=== PATIENT | male | born 1950 | race Caucasian/White ===

== ENCOUNTER 2023-04-22 13:24 | Outpatient (OUT) | payer MEDICARE, SELFPAY ==
[2023-04-22 14:47] LABS: Basophils Percent Auto 0.6 % (0.2-2.0); Eosinophils Absolute Auto 0.1 10^3/uL (0.0-0.7); Eosinophils Percent Auto 1.9 % (0.9-7.0); Hematocrit 43.8 % (42.0-54.0); Immature Granulocytes Abs Auto 0.02 10^3/uL (0.00-0.03); Immature Granulocytes Pct Auto 0.3 % (0.0-0.5); Lymphocytes Absolute Auto 1.2 10^3/uL (1.2-3.8); Lymphocytes Percent Auto 18.9 % (20.5-60.0); Mean Corpuscular HGB Conc 34.2 g/dL (29.9-35.2); Mean Corpuscular Hemoglobin 32.2 pg (25.9-34.0); Mean Platelet Volume 8.9 fL (9.5-13.5); Monocytes Absolute Auto 0.5 10^3/uL (0.3-0.8); Monocytes Percent Auto 7.9 % (1.7-12.0); Neutrophils Absolute Auto 4.4 10^3/uL (1.4-6.5); Neutrophils Percent Auto 70.4 % (43.0-75.0); Platelet Count 232 10^3/uL (150-450); Red Blood Count 4.66 10^6/uL (4.70-6.10); Red Cell Distribution Width 13.3 % (11.0-15.0); White Blood Count 6.2 10^3/uL (4.0-11.0)
[2023-04-22 14:55] LABS: INR 1.07; Prothrombin Time 11.3 sec (9.0-11.6)
[2023-04-22 16:08] LABS: Percent Iron Saturation 26.9 %
[2023-04-22 16:47] LABS: Alanine Aminotransferase 42 U/L (16-63); Albumin Globulin Ratio 1.1; Albumin Level 4.3 g/dL (3.4-5.0); Alkaline Phosphatase 65 U/L (46-116); Aspartate Amino Transferase 27 U/L (15-37); BUN Creatinine Ratio 12.1; Bilirubin Total 0.5 mg/dL (0.2-1.0); Calcium 8.9 mg/dL (8.5-10.1); Chloride 101 mmol/L (98-107); Estimated GFR (African America >60 (>=60); Estimated GFR (Non-African Ame >60 (>=60); Globulin 3.9 g/dL; Glucose 88 mg/dL (74-106); Sodium 138 mmol/L (136-145); Total Protein 8.2 g/dL (6.4-8.2)
[2023-04-23 06:12] LABS: Alpha-1-Antitrypsin, Serum 141 mg/dL (101-187); Ceruloplasmin 14.9 mg/dL (16.0-31.0); Transferrin 288 mg/dL (177-329)
[2023-04-23 07:12] LABS: HBsAg Screen Negative (Negative); HCV Ab Non Reactive (Non Reactive); Hep B Surface Ab Non Reactive (.)
[2023-04-23 13:08] LABS: ANA Direct Negative (Negative)
[2023-04-23 15:09] LABS: Actin (Smooth Muscle) Antibody 8 Units (0-19)
== END 2023-04-22 13:25 | disposition home or self-care (01) ==
LOC: LAB 13:41
PROVIDERS: PCP Family Medicine
DX: R79.89 Other specified abnormal findings of blood chemistry (principal); K76.0 Fatty (change of) liver, not elsewhere classified
CPT/HCPCS: 36415; 80053; 82103; 82390; 83516; 83540; 83550; 84466; 85025; 85610; 86038; 86706; 86803; 87340; 87522

== ENCOUNTER 2023-12-13 12:45 | Outpatient (OUT) | payer MEDICARE, SELFPAY ==
[2023-12-13 13:22] LABS: Alanine Aminotransferase 26 U/L (16-63); Albumin Globulin Ratio 0.9; Albumin Level 3.6 g/dL (3.4-5.0); Alkaline Phosphatase 64 U/L (46-116); Anion Gap 13.1; Aspartate Amino Transferase 22 U/L (15-37); BUN Creatinine Ratio 12.6; Bilirubin Total 0.4 mg/dL (0.2-1.0); Carbon Dioxide 29.1 mmol/L (21.0-32.0); Chloride 102 mmol/L (98-107); Estimated GFR (African America >60 (>=60); Estimated GFR (Non-African Ame >60 (>=60); Globulin 3.9 g/dL; Glucose 93 mg/dL (74-106); Potassium 4.2 mmol/L (3.5-5.1); Sodium 140 mmol/L (136-145); Total Protein 7.5 g/dL (6.4-8.2)
[2023-12-13 13:42] LABS: Basophils Absolute Auto 0.1 10^3/uL (0.0-0.1); Basophils Percent Auto 1.4 % (0.2-2.0); Eosinophils Absolute Auto 0.2 10^3/uL (0.0-0.7); Eosinophils Percent Auto 2.7 % (0.9-7.0); Hematocrit 44.2 % (42.0-54.0); Hemoglobin 14.6 g/dL (14.0-18.0); Immature Granulocytes Abs Auto 0.01 10^3/uL (0.00-0.03); Immature Granulocytes Pct Auto 0.2 % (0.0-0.5); Lymphocytes Absolute Auto 1.5 10^3/uL (1.2-3.8); Mean Corpuscular Volume 96.9 fL (80.0-94.0); Mean Platelet Volume 9.3 fL (9.5-13.5); Monocytes Absolute Auto 0.7 10^3/uL (0.3-0.8); Monocytes Percent Auto 11.5 % (1.7-12.0); Neutrophils Absolute Auto 3.4 10^3/uL (1.4-6.5); Neutrophils Percent Auto 58.2 % (43.0-75.0); Platelet Count 225 10^3/uL (150-450); Red Blood Count 4.56 10^6/uL (4.70-6.10); Red Cell Distribution Width 13.2 % (11.0-15.0); White Blood Count 5.8 10^3/uL (4.0-11.0)
== END 2023-12-13 12:46 | disposition home or self-care (01) ==
LOC: LAB 12:48
PROVIDERS: PCP Family Medicine
DX: R79.89 Other specified abnormal findings of blood chemistry (principal); K76.0 Fatty (change of) liver, not elsewhere classified; Z86.39 Personal history of other endocrine, nutritional and metabolic disease
CPT/HCPCS: 36415; 80053; 82306; 85025

== ENCOUNTER 2024-04-04 12:39 | Outpatient (OUT) | payer MEDICARE, SELFPAY ==
[2024-04-04 13:32] LABS: Basophils Absolute Auto 0.1 10^3/uL (0.0-0.1); Basophils Percent Auto 0.8 % (0.2-2.0); Eosinophils Absolute Auto 0.2 10^3/uL (0.0-0.7); Eosinophils Percent Auto 3.3 % (0.9-7.0); Immature Granulocytes Abs Auto 0.01 10^3/uL (0.00-0.03); Immature Granulocytes Pct Auto 0.2 % (0.0-0.5); Lymphocytes Absolute Auto 1.5 10^3/uL (1.2-3.8); Lymphocytes Percent Auto 23.1 % (20.5-60.0); Mean Corpuscular HGB Conc 34.1 g/dL (29.9-35.2); Mean Corpuscular Hemoglobin 32.6 pg (25.9-34.0); Mean Corpuscular Volume 95.3 fL (80.0-94.0); Mean Platelet Volume 9.2 fL (9.5-13.5); Monocytes Absolute Auto 0.6 10^3/uL (0.3-0.8); Neutrophils Percent Auto 62.6 % (43.0-75.0); Platelet Count 253 10^3/uL (150-450); Red Cell Distribution Width 13.4 % (11.0-15.0); White Blood Count 6.4 10^3/uL (4.0-11.0)
[2024-04-04 13:34] LABS: Alanine Aminotransferase 28 U/L (16-63); Albumin Level 3.5 g/dL (3.4-5.0); Alkaline Phosphatase 63 U/L (46-116); Anion Gap 6.5; Aspartate Amino Transferase 21 U/L (15-37); BUN Creatinine Ratio 12.9; Bilirubin Total 0.5 mg/dL (0.2-1.0); Carbon Dioxide 31.6 mmol/L (21.0-32.0); Chloride 104 mmol/L (98-107); Estimated GFR (African America >60 (>=60); Estimated GFR (Non-African Ame >60 (>=60); Globulin 3.6 g/dL; Glucose 106 mg/dL (74-106); Potassium 4.1 mmol/L (3.5-5.1); Sodium 138 mmol/L (136-145); Total Protein 7.1 g/dL (6.4-8.2)
[2024-04-04 14:07] LABS: Prostate Specific Antigen Scrn 0.71 ng/mL (<=4.00)
== END 2024-04-04 12:40 | disposition home or self-care (01) ==
LOC: LAB 12:41
PROVIDERS: PCP Family Medicine; Visit Provider Family Medicine
DX: R79.89 Other specified abnormal findings of blood chemistry (principal); Z12.5 Encounter for screening for malignant neoplasm of prostate
CPT/HCPCS: 36415; 80053; 85025; G0103

== ENCOUNTER 2024-09-03 09:56 | Outpatient (OUT) | payer MEDICARE, SELFPAY ==
--- NOTE | 2024-09-03 10:06 | XR_ITS ---
The [address] [address] Patient Name: ELVIS CARPENTER MRN: [id number] date: 1950 Sex: M Assigned Patient Location: [facility] Current Patient Location: Accession/Order Number: [id number] Exam Date: 09/03/2024 10:11 Report Date: 09/04/2024 09:12 At the request of: PETE BOLTON Procedure: XR foot LT min 3V PROCEDURE: XR foot LT min 3V HISTORY: Pain Of Left Great Toe COMPARISON: None. FINDINGS: BONES:Minimal narrowing of the first metatarsophalangeal joint. No articular surface irregularity or significant periarticular osteophytes. No fracture, dislocation, bone lesion of the foot. Small calcaneal plantar spur. SOFT TISSUES:No visible soft tissue swelling. EFFUSION:None visible. OTHER: Negative. XR/XR foot LT min 3V IMPRESSION: 1. Minimal degenerative change of the first metatarsophalangeal joint. Electronically authenticated by: REY GUTHRIE Date: 09/04/2024 09:12
== END 2024-09-03 09:57 | disposition home or self-care (01) ==
LOC: RAD 09:59
PROVIDERS: PCP Family Medicine; Visit Provider Family Medicine
DX: M79.675 Pain in left toe(s) (principal); M19.072 Primary osteoarthritis, left ankle and foot
CPT/HCPCS: 73630

== ENCOUNTER 2024-11-09 18:40 | Emergency (ER) | payer MEDICARE, SELFPAY ==
[2024-11-09] VITALS (12 sets, daily range): BP systolic 109–139; BP diastolic 72–82; PULSE 73–86; TEMP 36.7; O2SAT 90–100; BMI 26.9
--- OUTSIDE RECORDS SUMMARY | 2024-11-09 18:46 | XMS_ITS | CCD ---
Author Organization [facility] Care Team Providers Care Pump Operator Name Role Phone Unavailable Primary Care Provider BETTINA Butterfield Primary Care Physician HOANG, DR BETTINA Morgan Attending Unavailable HOANG, DR BETTINA Morgan Admitting Unavailable BOLTON, DR BETTINA Morgan Primary Care Unavailable HOANG, DR BETTINA Morgan Consulting Unavailable HOANG, DR BETTINA Morgan Admitting Unavailable BOLTON, DR BETTINA Morgan Primary Care Unavailable WEST, DR CRAIG Lindsay Consulting Unavailable BOLTON, DR BETTINA Morgan Attending Unavailable HOANG, DR BETTINA Morgan Consulting Unavailable HOANG, DR BETTINA Morgan Admitting Unavailable BOLTON, DR BETTINA Morgan Primary Care Unavailable WEST, DR CRAIG Lindsay Consulting Unavailable BOLTON, DR BETTINA Morgan Attending Unavailable BOLTON, DR BETTINA Morgan Consulting Unavailable BOLTON, DR BETTINA Morgan Primary Care Unavailable JAX PAUL Consulting Unavailable CRISTAL DE LEON Admitting Unavailable CRISTAL DE LEON Attending Unavailable CRISTAL DE LEON Consulting Unavailable Bettina Bolton MD Primary Care Provider BETTINA BOLTON Primary Care Unavailable ANA MARIA WAGNER Admitting Unavailable ANA MARIA WAGNER Attending Unavailable Bettina Bolton Unavailable Janae Warren Attending Unavailable Janae Warren Attending Unavailable Allergies Allergy Classification Reported Allergen(s) Allergy Type Date of Onset Reaction(s) Facility (3 sources) patient allergy list reviewed by nurse or physicia Propensity to adverse reactions 5 Comment:Done RadMit Other (3 sources) Allergies Reconciled Propensity to adverse reactions Unknown RadMit Other (1 source) No Known Medication Allergies; Translations: [No Known Medication Allergies] Propensity to adverse reactions (disorder) [facility] Repository Medications Current Medications Medication Drug Class(es) Dates Sig (Normalized) Sig (Original) Apoaequorin (PREVAGEN EXTRA STRENGTH PO) (2 sources) Apoaequorin (PRE VAGEN EXTRA STRENGTH PO) Take by mouth 0 Active atorvastatin 10 mg oral tablet (2 sources) HMG-CoA Reductase Inhibitor take 1 tablet by mouth once daily atorvastatin (LIPITOR) 10 MG tablet Take 1 tablet by mouth daily 0 Active benzonatate 200 mg oral capsule (1 source) Non-narcotic Antitussive Start: 4 take 200 mg by mouth three times daily Benzonatate Active 200 MG PO Three times daily 30 July 18, 2024 12:00am calcium chloride 0.0014 meq/ml / potassium chloride 0.004 meq/ml / sodium chloride 0.103 meq/ml / sodium lactate 0.028 meq/ml injectable solution (1 source) Start: 3 lactated ringers IV soln infusion methylPREDNISolone 4 mg oral tablet (1 source) Corticosteroid Start: 4 take 1 tablet by mouth once Methylprednisolone (Medrol (Law)) 4 mg tablets,dose pack Active 0 PO per package directions July 18, 2024 12:00am PO PER PKG DIR Multiple Vitamins-Minerals (THERAPEUTIC MULTIVITAMIN-MINERALS) tablet (2 sources) take 1 tablet by mouth once daily Multiple Vitamins-Minerals (THERAPEUTIC MULTIVITAMIN-MINERALS ) tablet Take 1 tablet by mouth daily 0 Active Multivitamin preparation (6 sources) Start: 3 multivitamin Refill(s) 0 Start Date: 02/24/23 Status: Ordered NONFORMULARY (2 sources) phenylephrine hydrochloride 25 mg/ml ophthalmic solution (2 sources) alpha-1 Adrenergic Agonist Start: 3 phenylephrine (MYDFRIN) 2.5 % ophthalmic solution 1 drop Start: 07-06-2021 phenylephrine (MYDFRIN) 2.5 % ophthalmic solution 1 drop proparacaine hydrochloride 5 mg/ml ophthalmic solution (2 sources) Local Anesthetic Start: 01-24-2023 proparacaine (ALCAINE) 0.5 % ophthalmic solution 1 drop Start: 07-06-2021 proparacaine ( ALCAINE) 0.5 % ophthalmic solution 1 drop 1000 ml sodium chloride 9 mg /ml injection (8 sources) Start: 01-24-2023 0.9 % sodium c hloride infusion Start: 01-24-2023 sodium chlorid e flush 0.9 % injection 5-40 mL Start: 07-06-2021 0.9 % sodium c hloride infusion Start: 07-06-2021 sodium chlorid e flush 0.9 % injection 5-40 mL tetracaine hydrochloride 5 mg/ml ophthalmic solution (2 sources) Sabina Local Anesthetic Start: 01-24-2023 tetracaine (TETRAVISC) 0.5 % ophthalmic solution 1 drop Start: 07-06-2021 tetracaine (TE TRAVISC) 0.5 % ophthalmic solution 1 drop tropicamide 10 mg/ml ophthalmic solution (2 sources) Anticholinergic Start: 01-24-2023 tropicamide (M YDRIACYL) 1 % ophthalmic solution 1 drop Start: 07-06-2021 tropicamide (M YDRIACYL) 1 % ophthalmic solution 1 drop ubidecarenone 100 mg oral ca psule (1 source) Coenzyme Q10 (CO Q-10) 100 MG CAPS Take 100 mg by mouth 0 Active ubidecarenone 100 mg / vitam in e 5 unt oral capsule (1 source) Coenzyme Q10 (CO Q-10) 100 MG CAPS Take 100 mg by mouth 0 Active Completed/Discontinued Medications Medication Drug Class(es) Dates Sig (Normalized) Sig (Original) citalopram 10 mg oral tablet (9 sources) Serotonin Reuptake Inhibitor Start: 01-04-2024 End: 01-05-2024 take 10 mg by mouth once daily Citalopram Discontinued 10 MG PO Daily January 04, 2024 12:00am January 05, 2024 1:44pm Start: 06-04-2021 take 1 tablet by [facility] once daily Citalopram Hydrobromide 10MG Citalopram Hydrobromide 10MG, 1 (one) Tablet Tablet Tablet daily # 30, 06/04/2021, Ref. x3. Active Oral daily for 0 *Pick strength-form from [employer] for eRX* 09 May, 2021 Active omeprazole 10 mg delayed release oral capsule (7 sources) Proton Pump Inhibitor Start: 01-04-2024 End: 01-05-2024 take 10 mg by mouth once daily Omeprazole Discontinued 10 MG PO Daily January 04, 2024 12:00am January 05, 2024 1:44pm Start: 07-28-2022 take 20 mg by mouth once daily PriLOSEC OTC 20MG PriLOSEC OTC( 20MG Oral daily ) Active -Hx Entry Oral daily for 0 *Pick strength-form from [employer] for eRX* 02 Jul, 2022 Active simvastatin 10 mg oral tablet (12 sources) HMG-CoA Reductase Inhibitor Start: 08-09-2022 End: 06-21-2024 take 10 mg by mouth once daily Simvastatin Discontinued 10 MG PO Daily March 06, 2024 1:50pm June 21, 2024 2:27pm Problems Active Problems Problem Classification Problem Date Documented Date Episodic/Chronic Abdominal pain (11 sources) Unspecified abdominal pain; Translations: [Abdominal pain] Onset: 07-29-2022 Episodic Cataract (7 sources) Age-related nuclear cataract of left eye; Translations: [Age-related nuclear cataract, left eye] Onset: 07-05-2021 Resolved: 01-24-2023 Chronic Chronic obstructive pulmonary disease and bronchiectasis (5 sources) Bronchitis; Translations: [Bronchitis, not specified as acute or chronic] 07-18-2024 Episodic Disorders of lipid metabolism (4 sources) Hyperlipidemia, unspecified; Translations: [Hyperlipidemia] Onset: 05-20-2022 Chronic Esophageal disorders (2 sources) Gastro-esophageal reflux disease with esophagitis; Translations: [Gastro-esophageal reflux disease with esophagitis, without bleeding] Onset: 12-02-2016 Chronic Esophageal disorders (1 source) Esophageal disorders; Translations: [Gastro-esophageal reflux disease with esophagitis, without bleeding] Onset: 12-02-2016 Essential hypertension (4 sources) Essential hypertension; Translations: [Essential (primary) hypertension] Chronic Hyperplasia of prostate (3 sources) Benign prostatic hypertrophy without outflow obstruction; Translations: [Hypertrophy (benign) of prostate without urinary obstruction and other lower urinary tract symptoms [LUTS]] Onset: 12-02-2016 Chronic Immunizations and screening for infectious disease (3 sources) Vaccination given; Translations: [Encounter for immunization] Episodic Mood disorders (3 sources) Depression; Translations: [Depression, unspecified] Chronic Open wounds of extremities (7 sources) Open bite of right hand, initial encounter; Translations: [Open wound of hand except fingers without complication] Onset: 06-26-2022 Episodic Other circulatory disease (3 sources) Elevated blood-pressure reading without diagnosis of hypertension; Translations: [Elevated blood-pressure reading, without diagnosis of hypertension] Episodic Other injuries and conditions due to external causes (3 sources) History of fall; Translations: [History of falling] Episodic Other liver diseases (13 sources) Steatosis of liver; Translations: [Fatty (change of) liver, not elsewhere classified] Onset: 02-23-2023 10-01-2022 Chronic Other nervous system disorders (4 sources) Other abnormalities of gait and mobility; Translations: [OTHER ABNORMALITIES GAIT AND MOBILITY] Onset: 09-08-2022 Episodic Other nervous system disorders (3 sources) Abnormal gait; Translations: [Other abnormalities of gait and mobility] Episodic Other screening for suspected conditions (not mental disorders or infectious disease) (20 sources) Encounter for screening for malignant neoplasm of prostate; Translations: [Screening for malignant neoplasm of colon done] Onset: 05-18-2022 Episodic Residual codes; unclassified (3 sources) Normal body mass index; Translations: [Body mass index (BMI) 24.0-24.9, adult] Episodic Residual codes; unclassified (3 sources) Procedure not done; Translations: [Procedure and treatment not carried out because of patient's decision for unspecified reasons] Episodic Residual codes; unclassified (3 sources) Body mass index 20-24 - normal; Translations: [Body mass index (BMI) 23.0-23.9, adult] Episodic Residual codes; unclassified (3 sources) Amnesia; Translations: [Other amnesia] Episodic Unclassified (7 sources) Liver function test increased 10-01-2022 Unclassified (6 sources) Patient encounter status 02-24-2023 Past or Other Problems Problem Classification Problem Date Documented Da te Episodic/Chronic Bacterial infection; unspecified site (3 sources) Bacterial infectious disease; Translations: [Bacterial infection, unspecified, in conditions classified elsewhere and of unspecified site] Onset: 12-02-2016 Episodic E Codes: Natural/environment (1 source) Bitten by dog, initial encounter; Translations: [BITTEN BY DOG INITIAL ENCOUNTER] Onset: 06-28-2022 Episodic Headache; including migraine (3 sources) Headache; Translations: [Headache, unspecified] Onset: 03-14-2018 Episodic Malaise and fatigue (3 sources) Malaise and fatigue; Translations: [Other malaise and fatigue] Onset: 02-21-2019 Episodic Other aftercare (1 source) Other software engineer advisor (current) drug therapy; Translations: [OTH DIRECTOR OF SOCIAL MEDIA MARKETING CURRENT DRUG THERAPY] Onset: 06-28-2022 Episodic Other connective tissue disease (3 sources) Foreign body granuloma of muscle; Translations: [Foreign body granuloma of muscle] Onset: 2016 Episodic Other gastrointestinal disorders (3 sources) Diarrhea; Translations: [Diarrhea] Onset: 08-31-2016 Episodic Other lower respiratory disease (3 sources) Cough; Translations: [Cough, unspecified] Onset: 01-23-2015 Episodic Other nervous system disorders (3 sources) Incoordination; Translations: [Lack of coordination] Onset: 03-14-2018 Episodic Other upper respiratory infections (3 sources) Acute pharyngitis; Translations: [Acute pharyngitis due to other specified organisms] Onset: 12-02-2016 Episodic Residual codes; unclassified (3 sources) Requires influenza virus vaccination; Translations: [Need for prophylactic vaccination and inoculation, Influenza] Onset: 07-07-2017 Episodic Residual codes; unclassified (3 sources) Family history of diabetes mellitus; Translations: [Family history of diabetes mellitus] Onset: 03-04-2014 Episodic Screening and history of mental health and substance abuse codes (3 sources) History of tobacco use; Translations: [Personal history of tobacco use, presenting hazards to health] Onset: 12-02-2016 Episodic Syncope (3 sources) Syncope and collapse; Translations: [Syncope and collapse] Onset: 08-31-2016 Episodic Unclassified (3 sources) Need for prophylactic vaccination with tetanus toxoid alone; Translations: [Need for prophylactic vaccination with tetanus toxoid alone] Onset: 04-10-2015 Unclassified (3 sources) Long-term current use of drug therapy; Translations: [Long-term (current) use of other medications] Onset: 02-21-2019 Results Test Name Value Interpretation Reference Range Facility No Panel InformationOrdered By: Brigitte Vora on 07-18-2024 Quick Strep (POC) [facility] Basophils Auto (Bld) [#/Vol] on 04-04-2024 Basophils (Bld) [#/Vol] 0.1 10 3/uL 0.0-0.1 [facility] Basophils/100 WBC Auto (Bld) on 04-04-2024 Basophils/100 WBC (Bld) 0.8 % 0.2-2.0 [facility] Eosinophils/100 WBC Auto (Bl d)on 04-04-2024 Eosinophils/100 WBC (Bld) 3.3 % 0.9-7.0 [facility] Erythrocyte distribution wid th Auto (RBC) [Ratio]on 04-04-2024 Erythrocyte distribution width (RBC) [Ratio] 13.4 % 11.0-15.0 [facility] Estimated glomerular filtrat ion rate (GFR) non- Americanon 04-04-2024 GFR/1.73 sq M.predicted among non-blacks MDRD (S/P/Bld) [Vol rate/Area] mL/min/{1.73_m2} >=60 [facility] Globulin Calc (S) [Mass/Vol] on 04-04-2024 Globulin (S) [Mass/Vol] 3.6 g/dL F [facility] Hematocrit Auto (Bld) [Volum e fraction]on 04-04-2024 Hematocrit (Bld) [Volume fraction] 41.0 % Low 42.0-54.0 [facility] Hemoglobin [Mass/volume] in Bloodon 04-04-2024 Hemoglobin (Bld) [Mass/Vol] 14.0 g/dL 14.0-18.0 [facility] Laboratory - Chemistry and C hemistry - challengeon 04-04-2024 Albumin [Mass/Vol] 3.5 g/dL 3.4-5.0 [facility] ALP [Catalytic activity/Vol] 63 U/L 46-116 [facility] ALT [Catalytic activity/Vol] 28 U/L 16-63 [facility] AST [Catalytic activity/Vol] 21 U/L 15-37 [facility] Bilirubin [Mass/Vol] 0.5 mg/dL 0.2-1.0 [facility] Calcium [Mass/Vol] 9.0 mg/dL 8.5-10.1 [facility] Chloride [Moles/Vol] 104 mmol/L 98-107 [facility] CO2 [Moles/Vol] 31.6 mmol/L 21.0-32.0 [facility] Creatinine [Mass/Vol] 1.16 mg/dL 0.70-1.30 [facility] GFR/1.73 sq M.predicted MDRD (S/P/Bld) [Vol rate/Area] mL/min/{1.73_m2} >=60 [facility] Glucose [Mass/Vol] 106 mg/dL 74-106 [facility] Potassium [Moles/Vol] 4.1 mmol/L 3.5-5.1 [facility] Protein [Mass/Vol] 7.1 g/dL 6.4-8.2 [facility] Sodium [Moles/Vol] 138 mmol/L 136-145 [facility] Urea nitrogen [Mass/Vol] 15.0 mg/dL 7.0-18.0 [facility] Urea nitrogen/Creatinine [Mass ratio] 12.9 mg/mg [facility] Laboratory - Hematology and Cell countson 04-04-2024 Immature granulocytes/100 WBC (Bld) 0.2 % 0.0-0.5 [facility] Leukocytes [#/volume] correc drew for nucleated erythrocytes in Blood by Automated counon 04-04-2024 WBC corrected for nucl RBC Auto (Bld) [#/Vol] 6.4 10 3/uL 4.0-11.0 [facility] Lymphocytes Auto (Bld) [#/Vo l]on 04-04-2024 Lymphocytes (Bld) [#/Vol] 1.5 10 3/uL 1.2-3.8 [facility] Lymphocytes/100 WBC Auto (Bl d)on 04-04-2024 Lymphocytes/100 WBC (Bld) 23.1 % 20.5-60.0 [facility] MCH Auto (RBC) [Entitic mass ]on 04-04-2024 MCH (RBC) [Entitic mass] 32.6 pg 25.9-34.0 [facility] MCHC Auto (RBC) [Mass/Vol]on 04-04-2024 MCHC (RBC) [Mass/Vol] 34.1 g/dL 29.9-35.2 [facility] MCV Auto (RBC) [Entitic vol] on 04-04-2024 MCV (RBC) [Entitic vol] 95.3 fL High 80.0-94.0 [facility] Monocytes Auto (Bld) [#/Vol] on 04-04-2024 Monocytes (Bld) [#/Vol] 0.6 10 3/uL 0.3-0.8 [facility] Monocytes/100 WBC Auto (Bld) on 04-04-2024 Monocytes/100 WBC (Bld) 10.0 % 1.7-12.0 [facility] Neutrophils Auto (Bld) [#/Vo l]on 04-04-2024 Neutrophils (Bld) [#/Vol] 4.0 10 3/uL 1.4-6.5 [facility] Neutrophils/100 WBC Auto (Bl d)on 04-04-2024 Neutrophils/100 WBC (Bld) 62.6 % 43.0-75.0 [facility] No Panel Informationon 04-04 Eosinophils # (Auto) 0.2 10 3/uL 0.0-0.7 [facility] Immature Granulocyte # (Auto) 0.01 10 3/uL 0.00-0.03 [facility] Prostate Specific Antigen Screen 0.71 ng/mL <=4.00 [facility] Platelet mean volume Auto (B ld) [Entitic vol]on 04-04-2024 Platelet mean volume (Bld) [Entitic vol] 9.2 fL Low 9.5-13.5 [facility] Platelets Auto (Bld) [#/Vol] on 04-04-2024 Platelets (Bld) [#/Vol] 253 10 3/uL 150-450 [facility] RBC Auto (Bld) [#/Vol]on RBC (Bld) [#/Vol] 4.30 10 6/uL Low 4.70-6.10 [facility] Serum or plasma albumin/glob ulin mass ratioon 04-04-2024 Albumin/Globulin [Mass ratio] 1.0 {ratio} [facility] Serum or plasma anion gap de terminationon 04-04-2024 Anion gap [Moles/Vol] 6.5 mmol/L [facility] Patient Correspondenceon Patient Correspondence [id number] #1.00TIFF Normal Chan [facility] Formson 02-03-2024 Forms [id number] #1.00TIFF Normal Dustin [facility] Gastroenterology Office/Clin ic Noteon 12-21-2023 Gastroenterology Office/Clinic Note Chief Complaint Checkup from 05/03/2023. HPI Staff This is a 73 year old male who presents today for a follow-up from 05/03/23 office visit. Did not see that Cologuard Form was filled out at last appointment. Patient states that PCP will order Cologuard. Office Visit: 05/03/2023 1. Hepatic steatosis (K76.0: Fatty (change of) liver, not elsewhere classified) Fibroscan results: F0 F1, mild steatosis, done in February 2023 Since liver enzymes normalized, we will continue to monitor Discussed the prognosis of NAFLD, lifestyle modifications Can consider saline Merron Continue simvastatin 2. Elevated LFTs (R79.89: Other specified abnormal findings of blood chemistry) Normalized Will repeat CBC CMP in 6 months Has small liver cyst, no need for repeat imaging for now 3. Screen for colon cancer (Z12.11: Encounter for screening for malignant neoplasm of colon) Not interested in colonoscopy, will do Cologuard, he will get it Laboratory Results CMP: 12/13/2023 Sodium 140 136-145 mmol/L Potassium 4.2 3.5-5.1 mmol/L Chloride 102 98-107 mmol/L Carbon Dioxide 29.1 21.0-32.0 mmol/L Anion Gap 13.1 Glucose 93 74-106 mg/dL Blood Urea Nitrogen 14.0 7.0-18.0 mg/dL Creatinine 1.11 0.70-1.30 mg/dL Estimated GFR ( Wendy >60 >=60 Estimated GFR (Non- Evelin >60 >=60 BUN Creatinine Ratio 12.6 Calcium 9.0 8.5-10.1 mg/dL Bilirubin Total 0.4 0.2-1.0 mg/dL Aspartate Amino Transferase 22 15-37 U/L Alanine Aminotransferase 26 16-63 U/L Alkaline Phosphatase 64 46-116 U/L Total Protein 7.5 6.4-8.2 g/dL Albumin Level 3.6 3.4-5.0 g/dL Globulin 3.9 g/dL Albumin Globulin Ratio 0.9 CBC: 12/13/2023 White Blood Count 5.8 4.0-11.0 10 3/uL Red Blood Count 4.56 4.70-6.10 Low 10 6/uL Hemoglobin 14.6 14.0-18.0 g/dL Hematocrit 44.2 42.0-54.0 % Mean Corpuscular Volume 96.9 80.0-94.0 High fL Mean Corpuscular Hemoglobin 32.0 25.9-34.0 pg Mean Corpuscular HGB Conc 33.0 29.9-35.2 g/dL Red Cell Distribution Width 13.2 11.0-15.0 % Platelet Count 225 150-450 10 3/uL Mean Platelet Volume 9.3 9.5-13.5 Low fL Neutrophils Percent Auto 58.2 43.0-75.0 % Lymphocytes Percent Auto 26.0 20.5-60.0 % Monocytes Percent Auto 11.5 1.7-12.0 % Eosinophils Percent Auto 2.7 0.9-7.0 % Basophils Percent Auto 1.4 0.2-2.0 % Immature Granulocytes Pct Auto 0.2 0.0-0.5 % Neutrophils Absolute Auto 3.4 1.4-6.5 10 3/uL Lymphocytes Absolute Auto 1.5 1.2-3.8 10 3/uL Monocytes Absolute Auto 0.7 0.3-0.8 10 3/uL Eosinophils Absolute Auto 0.2 0.0-0.7 10 3/uL Basophils Absolute Auto 0.1 0.0-0.1 10 3/uL Immature Granulocytes Abs Auto 0.01 0.00-0.03 Vitamin D 74.3 ng/mL Result Comments: <20 ng/mL Vit D deficient 20-<30 ng/mL Vit D insufficient 30-100 ng/mL Vit D sufficient >100 ng/mL Potential Toxicity History of Present Illness I have reviewed HPI staff note, most recent labs and imaging, more than 30 minutes spent reviewing the chart, during encounter, placing orders and counseling the patient. PT is doing well pt is working on the treadmill , 4 miles today Has not done the Cologuard test since PCP did not order no symptoms Review of Systems PHQ Score Initial Depression Screen Score: 0 SCORE All systems reviewed, negative except as mentioned above Physical Exam Vitals & Measurements HR: 77(Peripheral) BP: 134/84 HT: 65 in HT: 165 cm WT: 71.8 kg WT: 157.96 lb BMI: 26.37 General: alert, no acute distress HEENT: atraumatic normocephalic Cardiovascular: regular rate and rhythm, normal peripheral perfusion Respiratory: Lungs CTA, respirations non labored Extremities: no deformity, no trauma Abdomen: Benign, soft, nontender nondistended Assessment/Plan 1. Hepatic steatosis (K76.0: Fatty (change of) liver, not elsewhere classified) 2. Screen for colon cancer (Z12.11: Encounter for screening for malignant neoplasm of colon) Repeat CMP, INR, CBC after 6 months continue to eat healthy, exercise, and lose weight PCP to order Cologuard Follow-up No qualifying data available Problem List/Past Medical History Ongoing Elevated LFTs Hepatic steatosis Screen for colon cancer Historical No qualifying data Medications multivitamin, Not taking simvastatin 10 mg Tab Allergies No Known Medication Allergies Social History Alcohol Past, 04/22/2023 Substance Abuse - Denies Substance Abuse, 04/22/2023 Tobacco Former smoker, quit more than 30 days ago Tobacco Use:. Never Smokeless Tobacco Use:. Cigarettes, Yes, 12/21/2023 Family History Family history is negative Immunizations Vaccine Date Status Comments influenza virus vaccine, inactivated 07/15/2023 Recorded zoster vaccine, inactivated 05/14/2023 Recorded zoster vaccine, inactivated 12/06/2022 Recorded influenza virus vaccine, inactivated 07/03/2022 Recorded SARS-CoV-2 (COVID-19) [id number] 07/03/2022 Recorded SARSCoV2 mRNA(tozin (more content not included)... Normal [facility] Comment on above: Result Comment: Elec tronically Signed By: Briana KHALIL, Janae Elaine\.br\Date and Time Signed: 12/21/23 14:04 EDT Lab Reportson 12-14-2023 Lab Reports [id number] #1.00TIFF Normal [facility] Basophils Auto (Bld) [#/Vol] on 12-13-2023 Basophils (Bld) [#/Vol] 0.1 10 3/uL 0.0-0.1 [facility] Basophils/100 WBC Auto (Bld) on 12-13-2023 Basophils/100 WBC (Bld) 1.4 % 0.2-2.0 F [facility] Eosinophils/100 WBC Auto (Bl d)on 12-13-2023 Eosinophils/100 WBC (Bld) 2.7 % 0.9-7.0 [facility] Erythrocyte distribution wid th Auto (RBC) [Ratio]on 12-13-2023 Erythrocyte distribution width (RBC) [Ratio] 13.2 % 11.0-15.0 [facility] Estimated glomerular filtrat ion rate (GFR) non- Americanon 12-13-2023 GFR/1.73 sq M.predicted among non-blacks MDRD (S/P/Bld) [Vol rate/Area] mL/min/{1.73_m2} >=60 [facility] Globulin Calc (S) [Mass/Vol] on 12-13-2023 Globulin (S) [Mass/Vol] 3.9 g/dL F [facility] Hematocrit Auto (Bld) [Volum e fraction]on 12-13-2023 Hematocrit (Bld) [Volume fraction] 44.2 % 42.0-54.0 [facility] Hemoglobin [Mass/volume] in Bloodon 12-13-2023 Hemoglobin (Bld) [Mass/Vol] 14.6 g/dL 14.0-18.0 [facility] Laboratory - Chemistry and C hemistry - challengeon 12-13-2023 Albumin [Mass/Vol] 3.6 g/dL 3.4-5.0 [facility] ALP [Catalytic activity/Vol] 64 U/L 46-116 [facility] ALT [Catalytic activity/Vol] 26 U/L 16-63 [facility] AST [Catalytic activity/Vol] 22 U/L 15-37 [facility] Bilirubin [Mass/Vol] 0.4 mg/dL 0.2-1.0 [facility] Calcium [Mass/Vol] 9.0 mg/dL 8.5-10.1 [facility] Chloride [Moles/Vol] 102 mmol/L 98-107 [facility] CO2 [Moles/Vol] 29.1 mmol/L 21.0-32.0 [facility] Creatinine [Mass/Vol] 1.11 mg/dL 0.70-1.30 [facility] GFR/1.73 sq M.predicted MDRD (S/P/Bld) [Vol rate/Area] mL/min/{1.73_m2} >=60 [facility] Glucose [Mass/Vol] 93 mg/dL 74-106 [facility] Potassium [Moles/Vol] 4.2 mmol/L 3.5-5.1 [facility] Protein [Mass/Vol] 7.5 g/dL 6.4-8.2 [facility] Sodium [Moles/Vol] 140 mmol/L 136-145 [facility] Urea nitrogen [Mass/Vol] 14.0 mg/dL 7.0-18.0 [facility] Urea nitrogen/Creatinine [Mass ratio] 12.6 mg/mg [facility] - Hematology and Cell countson 12-13-2023 Immature granulocytes/100 WBC (Bld) 0.2 % 0.0-0.5 [facility] Leukocytes [#/volume] correc drew for nucleated erythrocytes in Blood by Automated counon 12-13-2023 WBC corrected for nucl RBC Auto (Bld) [#/Vol] 5.8 10 3/uL 4.0-11.0 [facility] Lymphocytes Auto (Bld) [#/Vo l]on 12-13-2023 Lymphocytes (Bld) [#/Vol] 1.5 10 3/uL 1.2-3.8 [facility] Lymphocytes/100 WBC Auto (Bl d)on 12-13-2023 Lymphocytes/100 WBC (Bld) 26.0 % 20.5-60.0 [facility] MCH Auto (RBC) [Entitic mass ]on 12-13-2023 MCH (RBC) [Entitic mass] 32.0 pg 25.9-34.0 [facility] MCHC Auto (RBC) [Mass/Vol]on 12-13-2023 MCHC (RBC) [Mass/Vol] 33.0 g/dL 29.9-35.2 [facility] MCV Auto (RBC) [Entitic vol] on 12-13-2023 MCV (RBC) [Entitic vol] 96.9 fL 80.0-94.0 [facility] Monocytes Auto (Bld) [#/Vol] on 12-13-2023 Monocytes (Bld) [#/Vol] 0.7 10 3/uL 0.3-0.8 [facility] Monocytes/100 WBC Auto (Bld) on 12-13-2023 Monocytes/100 WBC (Bld) 11.5 % 1.7-12.0 [facility] Neutrophils Auto (Bld) [#/Vo l]on 12-13-2023 Neutrophils (Bld) [#/Vol] 3.4 10 3/uL 1.4-6.5 [facility] Neutrophils/100 WBC Auto (Bl d)on 12-13-2023 Neutrophils/100 WBC (Bld) 58.2 % 43.0-75.0 [facility] No Panel Informationon 12-12 25-Hydroxy Vitamin D Total 74.3 ng/mL [facility] Comment on above: <20 ng/mL Vit D defi cient20-<30 ng/mL Vit D [id number] ng/mL Vit D sufficient>100 ng/mL Potential Toxicity Eosinophils # (Auto) 0.2 10 3/uL 0.0-0.7 [facility] Immature Granulocyte # (Auto) 0.01 10 3/uL 0.00-0.03 [facility] Platelet mean volume Auto (B ld) [Entitic vol]on 12-13-2023 Platelet mean volume (Bld) [Entitic vol] 9.3 fL 9.5-13.5 [facility] Platelets Auto (Bld) [#/Vol] on 12-13-2023 Platelets (Bld) [#/Vol] 225 10 3/uL 150-450 [facility] RBC Auto (Bld) [#/Vol]on RBC (Bld) [#/Vol] 4.56 10 6/uL 4.70-6.10 [facility] Serum or plasma albumin/glob ulin mass ratioon 12-13-2023 Albumin/Globulin [Mass ratio] 0.9 {ratio} [facility] Serum or plasma anion gap de terminationon 12-13-2023 Anion gap [Moles/Vol] 13.1 mmol/L [facility] MRI BRAIN WO CONon 2 MRI BRAIN WO CON EXAMINATION: MRI BRAIN WO CON, 09/08/2022 10:36 AM EST HISTORY: Abnormal gait COMPARISON: None. TECHNIQUE: MRI of the brain was performed without IV contrast. FINDINGS: CEREBRUM: No edema, hemorrhage, mass, acute infarction, or inappropriate atrophy. Few small areas of increased signal right occipital lobe on FLAIR and T2 star weighted images likely related to remote infarct and/or venous angiomas CEREBELLUM: No edema, hemorrhage, mass, acute infarction, or inappropriate atrophy. BRAINSTEM: No edema, hemorrhage, mass, acute infarction, or inappropriate atrophy. CSF SPACES: Ventricles, cisterns, and sulci are appropriate for age. No hydrocephalus, subarachnoid hemorrhage, or mass. SKULL: No mass or other significant visible lesion. SINUSES: Limited views demonstrate no significant mucosal thickening or fluid. ORBITS: Limited views are unremarkable. OTHER: Negative. IMPRESSION: No acute abnormality Electronically authenticated by: CRAIG CHAMBERS Date: 2022-09-09 11:50 Normal [facility] CT ABD/PELV W CONon 07-30-[address] ABD/PELV W CON EXAMINATION: CT ABD/PELV W CON, 07/29/2022 7:13 AM EDT HISTORY: Abdominal pain COMPARISON: None. TECHNIQUE: CT scan of the abdomen and pelvis was performed with IV contrast. CT dose reduction technique was used, including Automated Exposure Control. FINDINGS: LUNG BASES: No visible pulmonary or pleural disease. LIVER: Diffuse hypoattenuation suggesting steatosis BILIARY: No dilatation or calcification. PANCREAS: No lesion, fluid collection, ductal dilatation, or atrophy. SPLEEN: No enlargement or focal lesion. ADRENALS: Left adrenal calcification KIDNEYS: Bilateral nonobstructing nephrolithiasis. No hydronephrosis BOWEL/MESENTERY: Extensive colonic diverticulosis without evidence of acute diverticulitis. Nonobstructive bowel gas pattern. AORTA/VASCULAR: No aortic aneurysm or dissection. Heavy atherosclerosis RETROPERITONEUM: No mass or adenopathy. LYMPH NODES: No adenopathy. URINARY BLADDER: No visible focal wall thickening, lesion, or calculus. PELVIC ORGANS: Mildly enlarged prostate gland measuring 5.1 cm transversely ABDOMINAL WALL: No mass or hernia. BONES: No bony lesion or fracture. OTHER: Negative. IMPRESSION: No acute abnormality Electronically authenticated by: CRAIG CHAMBERS Date: 2022-07-30 07:49 Normal [facility] CBC AUTO DIFFon 07-29-2022 BASO # 0.1 103/ul Normal 0.0-0.1 [facility] Comment on above: Performed By: #### C BC #### [facility] [address] [place] [address] Dr. Yin Tinoco Basophils/100 WBC (Bld) 1.0 % Normal 0.2-2.0 [facility] Comment on above: Performed By: #### C BC #### [facility] [address] [place] [address] Dr. Yin Tinoco EO # 0.5 103/ul Normal 0.0-0.7 [facility] Comment on above: Performed By: #### C BC #### [facility] [address] [place] [address] Dr. Yin Tinoco Eosinophils/100 WBC (Bld) 7.8 % Critically high 0.9-7.0 [facility] Comment on above: Performed By: #### C BC #### [facility] [address] [place] [address] Dr. Yin Tinoco Erythrocyte distribution width (RBC) [Ratio] 13.5 % Normal 11.0-15.0 [facility] Comment on above: Performed By: #### C BC #### [facility] [address] [place] [address] Dr. Yin Tinoco Hematocrit (Bld) [Volume fraction] 42.0 % Normal 42.0-54.0 [facility] Comment on above: Performed By: #### C BC #### [facility] [address] [place] [address] Dr. Yin Tinoco Hemoglobin (Bld) [Mass/Vol] 14.3 g/dL Normal 14.0-18.0 [facility] Comment on above: Performed By: #### C BC #### [facility] [address] [place] [address] Dr. Yin Tinoco IG # 0.02 10e3/ul Normal 0.00-0.03 [facility] Comment on above: Performed By: #### C BC #### [facility] [address] [place] [address] Dr. Yin Tinoco IG % 0.3 % Normal 0.0-0.5 [facility] Comment on above: Performed By: #### C BC #### [facility] [address] [place] [address] Dr. Yin Tinoco LYMPH # 1.7 103/ul Normal 1.2-3.8 [facility] Comment on above: Performed By: #### C BC #### [facility] [address] [place] [address] Dr. Yin Tinoco Lymphocytes/100 WBC (Bld) 27.3 % Normal 20.5-60.0 [facility] Comment on above: Performed By: #### C BC #### [facility] [address] [place] [address] Dr. Yin Tinoco MANUAL DIFF REQ NO Normal [facility] Comment on above: Performed By: #### C BC #### [facility] [address] [place] [address] Dr. Yin Tinoco MCH (RBC) [Entitic mass] 32.7 pg Normal 25.9-34.0 [facility] Comment on above: Performed By: #### C BC #### [facility] [address] [place] [address] Dr. Yin Tinoco MCHC (RBC) [Mass/Vol] 34.0 g/dL Normal 29.9-35.2 [facility] Comment on above: Performed By: #### C BC #### [facility] [address] [place] [address] Dr. Yin Tinoco MCV (RBC) [Entitic vol] 96.1 fL Critically high 80.0-94 .0 [facility] Comment on above: Performed By: #### C BC #### [facility] [address] [place] [address] Dr. Yin Tincoo MONO # 0.6 103/ul Normal 0.3-0.8 [facility] Comment on above: Performed By: #### C BC #### [facility] [address] [place] [address] Dr. Yin Tinoco Monocytes/100 WBC (Bld) 10.0 % Normal 1.7-12.0 [facility] Comment on above: Performed By: #### C BC #### [facility] [address] [place] [address] Dr. Yin Tinoco NEUT # 3.4 103/ul Normal 1.4-6.5 [facility] Comment on above: Performed By: #### C BC #### [facility] [address] [place] [address] Dr. Yin Tinoco Neutrophils/100 WBC (Bld) 53.6 % Normal 43.0-75.0 [facility] Comment on above: Performed By: #### C BC #### [facility] [address] [place] [address] Dr. Yin Tinoco Platelet mean volume (Bld) [Entitic vol] 9.0 fL Critically low 9.5-13.5 [facility] Comment on above: Performed By: #### C BC #### [facility] [address] [place] [address] Dr. Yin Tinoco PLT 203 103/ul Normal 150-450 [facility] Comment on above: Performed By: #### C BC #### [facility] [address] [place] [address] Dr. Yin Tinoco RBC 4.37 106/ul Critically low 4.70-6.10 [facility] Comment on above: Performed By: #### C BC #### [facility] [address] [place] [address] Dr. Yin Tinoco WBC 6.3 103/ul Normal 4.0-11.0 [facility] Comment on above: Performed By: #### C BC #### [facility] [address] [place] [address] Dr. Yin Tinoco LIPASEon 07-29-2022 Lipase [Catalytic activity/Vol] 99.0 U/L Normal 73.0-393.0 [facility] Comment on above: Performed By: #### L IPA #### [facility] [address] [address] [address] Yin Tinoco PROF 14(COMP METB)on 022 Albumin [Mass/Vol] 3.7 g/dL Normal 3.4-5.0 [facility] Comment on above: Performed By: #### C MP #### [facility] [address] [address] [address] Yin Tinoco Albumin/Globulin [Mass ratio] 0.9 {ratio} Normal [facility] Comment on above: Performed By: #### C MP #### [facility] [address] [address] [address] Yin Tinoco ALP [Catalytic activity/Vol] 171 U/L Critically high 46-116 [facility] Comment on above: Performed By: #### C MP #### [facility] [address] [place] [address] Dr. Yin Tinoco ALT [Catalytic activity/Vol] 372 U/L Critically high 16-63 [facility] Comment on above: Performed By: #### C MP #### [facility] [address] [place] [address] Dr. Yin Tinoco Anion gap [Moles/Vol] 7.8 mmol/L Normal [facility] Comment on above: Performed By: #### C MP #### [facility] [address] [place] [address] Dr. Yin Tinoco AST [Catalytic activity/Vol] 104 U/L Critically high 15-37 [facility] Comment on above: Performed By: #### C MP #### [facility] [address] [place] [address] Dr. Yin Tinoco Bilirubin [Mass/Vol] 0.6 mg/dL Normal 0.2-1.0 [facility] Comment on above: Performed By: #### C MP #### [facility] [address] [place] [address] Dr. Yin Tinoco Calcium [Mass/Vol] 9.3 mg/dL Normal 8.5-10.1 [facility] Comment on above: Performed By: #### C MP #### [facility] [address] [address] [address] Yin Tinoco Chloride [Moles/Vol] 102 mmol/L Normal 98-107 [facility] Comment on above: Performed By: #### C MP #### [facility] [address] [address] [address] Yin Tinoco CO2 [Moles/Vol] 32.5 mmol/L Critically high 21.0-32.0 [facility] Comment on above: Performed By: #### C MP #### [facility] [address] [place] [address] Dr. Yin Tinoco Creatinine [Mass/Vol] 0.99 mg/dL Normal 0.70-1.30 [facility] Comment on above: Performed By: #### C MP #### [facility] [address] [place] [address] Dr. Yin Tinoco EGFR-AF OMANI >60 Normal >=60 [facility] Comment on above: Performed By: #### C MP #### [facility] [address] [address] [address] Yin Tinoco EGFR-NON AF OMANI >60 Normal >=60 [facility] Comment on above: Performed By: #### C MP #### [facility] [address] [address] [address] Yin Tinoco Globulin (S) [Mass/Vol] 3.9 g/dL Normal T [facility] Comment on above: Performed By: #### C MP #### [facility] [address] [address] [address] Yin Tinoco Glucose [Mass/Vol] 99 mg/dL Normal 74-106 [facility] Comment on above: Performed By: #### C MP #### [facility] [address] [address] [address] Yin Tinoco Potassium [Moles/Vol] 4.3 mmol/L Normal 3.5-5.1 [facility] Comment on above: Performed By: #### C MP #### [facility] [address] [place] [address] Dr. Yin Tinoco Protein [Mass/Vol] 7.6 g/dL Normal 6.4-8.2 [facility] Comment on above: Performed By: #### C MP #### [facility] [address] [address] [address] Yin Tinoco Sodium [Moles/Vol] 138 mmol/L Normal 136-145 [facility] Comment on above: Performed By: #### C MP #### [facility] [address] [address] [address] Yin Tinoco Urea nitrogen [Mass/Vol] 15.0 mg/dL Normal 7.0-18.0 [facility] Comment on above: Performed By: #### C MP #### [facility] [address] [place] [address] Dr. Yin Tinoco Urea nitrogen/Creatinine [Mass ratio] 15.2 mg/mg Normal [facility] Comment on above: Performed By: #### C MP #### [facility] [address] [place] [address] Dr. Yin Tinoco LIPID PROFILEon 05-18-2022 CHOL-HDL RATIO NORM SEE BELOW Normal [facility] Comment on above: Result Comment: 3.3 - 4.4 LOW RISK 4.4 - 7.1 AVERAGE RISK 7.1 - 11.0 MODERATE RISK >11.0 HIGH RISK Performed By: #### L IPID, CMP #### [facility] [address] [place] [address] Dr. Yin Tinoco Cholesterol [Mass/Vol] 178 mg/dL Normal <=200 [facility] Comment on above: Performed By: #### L IPID, CMP #### [facility] [address] [place] [address] Dr. Yin Tinoco Cholesterol in HDL [Mass/Vol] 65 mg/dL Critically high 40-60 [facility] Comment on above: Performed By: #### L IPID, CMP #### [facility] [address] [place] [address] Dr. Yin Tinoco Cholesterol in LDL [Mass/Vol] 99.4 mg/dL Normal [facility] Comment on above: Performed By: #### L IPID, CMP #### [facility] [address] [address] [address] Yin Tinoco Cholesterol.total/Carlie sterol in HDL [Mass ratio] 2.7 {ratio} Normal [facility] Comment on above: Performed By: #### L IPID, CMP #### [facility] [address] [address] [address] Yin Tinoco HDL NORMAL > or = 60 mg/dl - LOW CARDIOVASCULAR RISK <40 mg/dl - HIGH CARDIOVASCULAR RISK Normal [facility] Comment on above: Performed By: #### L IPID, CMP #### [facility] [address] [address] [address] Yin Tinoco LDL CALC NORMAL SEE BELOW Normal [facility] Comment on above: Result Comment: <100 mg/dl OPTIMAL 100 - 129 mg/dl NEAR OR ABOVE OPTIMAL 130 - 159 mg/dl BORDERLINE HIGH 160 - 189 mg/dl HIGH >190 mg/dl VERY HIGH Performed By: #### L IPID, CMP #### [facility] [address] [address] [address] Yin Tinoco Triglyceride [Mass/Vol] 68 mg/dL Normal <=150 T [facility] Comment on above: Performed By: #### L IPID, CMP #### [facility] [address] [address] [address] Yin Tinoco VLDL CALC 13.6 mg/dL Normal [facility] Comment on above: Performed By: #### L IPID, CMP #### [facility] [address] [place] [address] Dr. Yin Tinoco PROF 14(COMP METB)on 022 Albumin [Mass/Vol] 3.6 g/dL Normal 3.4-5.0 [facility] Comment on above: Performed By: #### L IPID, CMP #### [facility] [address] [place] [address] Dr. Yin Tinoco Albumin/Globulin [Mass ratio] 1.0 {ratio} Normal [facility] Comment on above: Performed By: #### L IPID, CMP #### [facility] [address] [place] [address] Dr. Yin Tinoco ALP [Catalytic activity/Vol] 65 U/L Normal 46-116 [facility] Comment on above: Performed By: #### L IPID, CMP #### [facility] [address] [address] [address] Yin Tinoco ALT [Catalytic activity/Vol] 35 U/L Normal 16-63 [facility] Comment on above: Performed By: #### L IPID, CMP #### [facility] [address] [address] [address] Yin Tinoco Anion gap [Moles/Vol] 9.3 mmol/L Normal [facility] Comment on above: Performed By: #### L IPID, CMP #### [facility] [address] [address] [address] Yin Tinoco AST [Catalytic activity/Vol] 23 U/L Normal 15-37 [facility] Comment on above: Performed By: #### L IPID, CMP #### [facility] [address] [address] [address] Yin Tinoco Bilirubin [Mass/Vol] 0.5 mg/dL Normal 0.2-1.0 [facility] Comment on above: Performed By: #### L IPID, CMP #### [facility] [address] [place] [address] Dr. Yin Tinoco Calcium [Mass/Vol] 8.9 mg/dL Normal 8.5-10.1 [facility] Comment on above: Performed By: #### L IPID, CMP #### [facility] [address] [place] [address] Dr. Yin Tinoco Chloride [Moles/Vol] 104 mmol/L Normal 98-107 [facility] Comment on above: Performed By: #### L IPID, CMP #### [facility] [address] [address] [address] Yin Tinoco CO2 [Moles/Vol] 30.9 mmol/L Normal 21.0-32.0 [facility] Comment on above: Performed By: #### L IPID, CMP #### [facility] [address] [place], [place] [id number] Dr. Yin Tinoco Creatinine [Mass/Vol] 1.16 mg/dL Normal 0.70-1.30 [facility] Comment on above: Performed By: #### L IPID, CMP #### [facility] [address] [place] [address] Dr. Yin Tinoco EGFR-AF OMANI >60 Normal >=60 [facility] Comment on above: Performed By: #### L IPID, CMP #### [facility] [address] [address] [address] Yin Tinoco EGFR-NON AF OMANI >60 Normal >=60 [facility] Comment on above: Performed By: #### L IPID, CMP #### [facility] [address] [place] [address] Dr. Yin Tinoco Globulin (S) [Mass/Vol] 3.6 g/dL Normal T [facility] Comment on above: Performed By: #### L IPID, CMP #### [facility] [address] [place] [address] Dr. Yin Tinoco Glucose [Mass/Vol] 95 mg/dL Normal 74-106 [facility] Comment on above: Performed By: #### L IPID, CMP #### [facility] [address] [place] [address] Dr. Yin Tinoco Potassium [Moles/Vol] 4.3 mmol/L Normal 3.5-5.1 [facility] Comment on above: Performed By: #### L IPID, CMP #### [facility] [address] [place] [address] Dr. Yin Tinoco Protein [Mass/Vol] 7.2 g/dL Normal 6.4-8.2 [facility] Comment on above: Performed By: #### L IPID, CMP #### [facility] [address] [place] [address] Dr. Yin Tinoco Sodium [Moles/Vol] 140 mmol/L Normal 136-145 [facility] Comment on above: Performed By: #### L IPID, CMP #### [facility] [address] [place] [address] Dr. Yin Tinoco Urea nitrogen [Mass/Vol] 16.0 mg/dL Normal 7.0-18.0 [facility] Comment on above: Performed By: #### L IPID, CMP #### [facility] [address] [address] [address] Yin Tinoco Urea nitrogen/Creatinine [Mass ratio] 13.7 mg/mg Normal [facility] Comment on above: Performed By: #### L IPID, CMP #### [facility] [address] [address] [address] Yin Tinoco Vital Signs Date Time Vital Sign Value Performing Clinician Facility 07-18-2024 10:48-0400 Body height 166.37 cm [facility] 07-18-2024 10:48-0400 Body mass index (BMI) [Ratio] 25.5 kg/m2 [facility] 07-18-2024 10:48-0400 Body temperature 97.8 [degF] [facility] 07-18-2024 10:48-0400 Body weight 70.76 kg [facility] 07-18-2024 10:48-0400 Diastolic blood pressure 78 mm[Hg] [facility] 07-18-2024 10:48-0400 Heart rate 72 /min [facility] 07-18-2024 10:48-0400 SaO2% (BldA) [Mass fraction] 97 % [facility] 07-18-2024 10:48-0400 Systolic blood pressure 130 mm[Hg] [facility] 06-21-2024 14:08-0400 Body height 166.37 cm [facility] 06-21-2024 14:08-0400 Body mass index (BMI) [Ratio] 25.7 kg/m2 [facility] 06-21-2024 14:08-0400 Body weight 71.32 kg [facility] 06-21-2024 14:08-0400 Diastolic blood pressure 78 mm[Hg] [facility] 06-21-2024 14:08-0400 Heart rate 70 /min [facility] 06-21-2024 14:08-0400 Systolic blood pressure 124 mm[Hg] [facility] 03-06-2024 13:50-0400 Body height 166.37 cm [facility] 03-06-2024 13:50-0400 Body mass index (BMI) [Ratio] 25.4 kg/m2 [facility] 03-06-2024 13:50-0400 Body weight 70.3 kg [facility] 03-06-2024 13:50-0400 Diastolic blood pressure 80 mm[Hg] [facility] 03-06-2024 13:50-0400 Heart rate 77 /min [facility] 03-06-2024 13:50-0400 Systolic blood pressure 123 mm[Hg] [facility] 01-05-2024 13:34-0400 Body height 166.37 cm [facility] 01-05-2024 13:34-0400 Body mass index (BMI) [Ratio] 25.6 kg/m2 [facility] 01-05-2024 13:34-0400 Body weight 70.87 kg [facility] 01-05-2024 13:34-0400 Diastolic blood pressure 87 mm[Hg] [facility] 01-05-2024 13:34-0400 Heart rate 77 /min [facility] 01-05-2024 13:34-0400 Systolic blood pressure 131 mm[Hg] [facility] 12-21-2023 13:39-0400 Blood Pressure Location Janae Warren [facility] 12-21-2023 13:39-0400 Diastolic blood pressure 84 mm[Hg] Janae Warren [facility] 12-21-2023 13:39-0400 Heart rate 77 /min Janae Warren [facility] 12-21-2023 13:39-0400 Systolic blood pressure 134 mm[Hg] Janae Warren [facility] 08-24-2023 13:00-0400 Body height 168.91 cm Bettina Bolton Other [facility] Other 05-19-2023 13:00-0400 Body mass index (BMI) [Ratio] 24 kg/m2 Bettina Bolton Other [facility] Other 05-19-2023 13:00-0400 Body weight 68.49 kg Bettina Bolton Other [facility] Other 05-19-2023 13:00-0400 Diastolic blood pressure 76 mm[Hg] Bettina Bolton Other [facility] Other 05-19-2023 13:00-0400 Systolic blood pressure 127 mm[Hg] Bettina Bolton Other [facility] Other 04-22-2023 08:49-0400 Diastolic blood pressure 84 mm[Hg] Abi Corona [facility] 04-22-2023 08:49-0400 Mean blood pressure 102 mm[Hg] Abi Corona [facility] 04-22-2023 08:49-0400 Systolic blood pressure 138 mm[Hg] Abi Corona [facility] 04-22-2023 08:46-0400 Blood Pressure Location Abi Corona [facility] 04-22-2023 08:46-0400 Diastolic blood pressure 92 mm[Hg] Abi Corona [facility] 04-22-2023 08:46-0400 Heart rate 59 /min Abi Corona [facility] 04-22-2023 08:46-0400 Respiratory rate 16 /min Abi Corona [facility] 04-22-2023 08:46-0400 SaO2% (BldA) [Mass fraction] 100 % Abi Jeter [facility] 04-22-2023 08:46-0400 Systolic blood pressure 153 mm[Hg] Abi Jeter [facility] 02-24-2023 13:04-0400 Blood Pressure Location Barcenas SALAM [facility] 02-24-2023 13:04-0400 Diastolic blood pressure 84 mm[Hg] Barcenas SALAM [facility] 02-24-2023 13:04-0400 Heart rate 75 /min Barcenas SALAM [facility] 02-24-2023 13:04-0400 Respiratory rate 16 /min Barcenas SALAM [facility] 02-24-2023 13:04-0400 Systolic blood pressure 132 mm[Hg] Barcenas SALAM [facility] 01-24-2023 11:15-0400 Diastolic blood pressure 80 mm[Hg] Ana Maria Wagner DO Work Phone: [facility] 01-24-2023 11:15-0400 Heart rate 64 /min Ana Maria Wagner DO [facility] [employer] 01-24-2023 11:15-0400 Respiratory rate 16 /min Ana Maria Wagner DO Work Phone: [facility] 01-24-2023 11:15-0400 SaO2% (BldA) [Mass fraction] 98 % Ana Maria Wagner DO Work Phone[facility] [employer] 01-24-2023 11:15-0400 Systolic blood pressure 126 mm[Hg] Ana Maria Wagner DO Work Phone: [employer] 01-24-2023 10:53-0400 Body temperature 97.2 [degF] Ana Maria Wagner DO Work Phone: [facility] 01-24-2023 09:51-0400 Body height 165.1 cm Ana Maria Wagner DO Work Phone: [employer] 01-24-2023 09:51-0400 Body mass index (BMI) [Ratio] 25.79 kg/m2 Ana Maria Wagner DO Work Phone: [employer] 01-24-2023 09:51-0400 Body weight 70.31 kg Ana Maria Wagner DO Work Phone: [facility] 07-06-2021 10:15-0400 Diastolic blood pressure 61 mm[Hg] Ana Maria Wagner DO Work Phone: [employer] Work Phone: 07-06-2021 10:15-0400 Heart rate 59 /min Ana Maria Wagner DO Work Phone: [employer] Work Phone: 07-06-2021 10:15-0400 Respiratory rate 18 /min Ana Maria Wagner DO Work Phone: [employer] Work Phone: 07-06-2021 10:15-0400 SaO2% (BldA) [Mass fraction] 99 % Ana Maria Wagner DO Work Phone: [employer] Work Phone: 07-06-2021 10:15-0400 Systolic blood pressure 131 mm[Hg] Ana Maria Wagner DO Work Phone: [employer] Work Phone: 07-06-2021 10:05-0400 Body temperature 97 [degF] Ana Maria Wagner DO Work Phone: [employer] Work Phone: 07-06-2021 09:16-0400 Body height 165.1 cm Ana Maria Wagner DO Work Phone: [employer] Work Phone: 07-06-2021 09:16-0400 Body mass index (BMI) [Ratio] 25.79 kg/m2 Ana Maria Wagner DO Work Phone: [employer] Work Phone: 07-06-2021 09:16-0400 Body weight 70.31 kg Ana Maria Wagner DO Work Phone: [employer] Work Phone: Encounters Encounter Date Encounter Type Care Provider Facility Start: 07-18-2024 End: 07-18-2024 ambulatory [facility] Work Phone: Start: 07-18-2024 End: 07-18-2024 Patient encounter procedure [facility] Physician [facility] Work Phone: Start: 06-25-2024 End: 06-25-2024 ambulatory Janae Warren Facility:[facility] Start: 06-25-2024 End: 06-25-2024 Patient encounter procedure Janae Warren [facility] Start: 06-21-2024 End: 06-21-2024 ambulatory [facility] Work Phone: Start: 06-21-2024 End: 06-21-2024 Patient encounter procedure [facility] Physician [facility] Work Phone: Start: 04-04-2024 Non-patient / Non-visit [facility] Physician [facility] Work Phone: Start: 03-06-2024 End: 03-06-2024 ambulatory [facility] Work Phone: Start: 03-06-2024 End: 03-06-2024 Patient encounter procedure [facility] Physician [facility] Work Phone: Start: 01-05-2024 End: 01-05-2024 ambulatory [facility] Work Phone: Start: 01-05-2024 End: 01-05-2024 Patient encounter procedure [facility] Start: 12-21-2023 End: 12-21-2023 ambulatory Janae Warren Facility:[facility] Start: 12-21-2023 End: 12-21-2023 Patient encounter procedure Janae Warren [facility] Start: 12-13-2023 Non-patient / Non-visit [facility] Physician [facility] [employer] Work Phone: Start: 10-05-2023 End: 10-05-2023 ambulatory Bettina Bolton Other [employer] Other Start: 10-05-2023 Telephone encounter Bettina Hoang [facility] Start: 05-19-2023 End: 05-19-2023 ambulatory Bettina Bolton Other [facility] Other Start: 05-19-2023 Patient encounter procedure Bettina Hoang [facility] Start: 04-22-2023 End: 04-22-2023 Patient encounter procedure Abi Jeter [facility] Start: 04-04-2023 End: 04-04-2023 Patient encounter procedure Barcenasausten MANUELAM [facility] Start: 03-09-2023 End: 03-09-2023 Patient encounter procedure Barcenas SALAM [facility] Start: 02-24-2023 End: 02-24-2023 Patient encounter procedure Barcenas SALAM [facility] Start: 01-24-2023 End: 01-24-2023 ambulatory BETTINA BOLTON [facility] Start: 01-24-2023 End: 01-24-2023 Subsequent hospital visit by physician Ana Maria Wagner DO Work Phone: [facility] Start: 10-06-2022 End: 10-06-2022 Patient encounter procedure Barceans SALAM [facility] Start: 09-13-2022 Adult health examination Bettina Bolton Other [facility] Other Start: 09-08-2022 End: 09-09-[address] BETTINA BOLTON Facility:[facility] Start: 07-29-2022 End: 07-30-[address] BETTINA BOLTON Facility:[facility] Start: 06-26-2022 End: 06-26-[address] BETTINA BOLTON Facility:[facility] Start: 05-18-2022 End: 05-19-[address] BETTINA BOLTON Facility:[facility] Start: 07-06-2021 End: 07-06-2021 Subsequent hospital visit by physician Ana Maria Wagner DO Work Phone: [facility] Procedures Date Procedure Procedure Detail Performing Clinician Start: 07-18-2024 Quick Strep (POC) Start: 05-18-[address] BETTINA BOLTON Comment on above: Performed By: #### P [facility] #### [facility] [address] [place] [address] Dr. Yin Tinoco Start: 03-14-2019 Screening for malign ant neoplasm of colon Bettina Bolton Other Start: 03-04-2014 General examination of patient Bettina Bolton Other Start: 03-04-2014 Screening for malign ant neoplasm of prostate Bettina Bolton Other Depression screening Bettina Bolton Other Removal of suture Bettina Kwan daniels Other Screening for malign ant neoplasm of prostate Bettina Hoang Other Plan of Treatment Date Care Activity Detail Author Start: 06-21-2024 Patient referral [facility] Work Phone: Start: 01-24-2023 End: 01-24-2023 Xcapsl ctrc rmvl insj io lens prosth w/o ecp EYE CATARACT EMULSIFICATION IOL IMPLANT Combined forms of age-related cataract of right eye 01/24/2023 10:31 AM EDT [facility] Start: 05-27-2021 Influenza vaccination Flu vaccine (# 1) [facility] Work Phone: Start: 1969 DTaP/Tdap/Td vaccine (1 - Tdap) DTaP/Tdap/Td vaccine (1 - Tdap) [facility] Start: 1962 COVID-19 Vaccine (1) COVID-19 Vaccin e (1) [facility] Work Phone: Comprehensive metabo lic 2000 panel - Serum or Plasma [facility] Oxygen therapy [Mini mum Data Set] Initiate Oxygen Therapy Protocol Respiratory Care Routine Daily until discontinued starting 07/06/2021 [facility] Phone: Comment on above: Daily until disconti nued starting 07/06/2021 Oxygen therapy [Mini mum Data Set] Initiate Oxygen Therapy Protocol Respiratory Care Routine Daily until discontinued starting 01/24/2023 [facility] Work Phone: Comment on above: Daily until disconti nued starting 01/24/2023 Patient referral [facility] Work Phone: [facility] Immunizations Immunization Date Immunization Notes Care Provider Fa johnie 07-15-2023 influenza virus vaccine, unspecified formulation Janae Warren [facility] 05-14-2023 zoster vaccine recombinant Janae Warren [facility] 12-06-2022 zoster vaccine recombinant Barcenas SALAM [facility] 07-03-2022 influenza virus vaccine, unspecified formulation Barcenas SALAM [facility] 07-03-2022 SARS-CoV-2 (COVID-19 ) [id number] Barcenas SALAM [facility] 01-08-2022 SARS-CoV-2 mRNA (lcymtyejcdw-ahck-jddrk se) vaccine Barcenas SALAM [facility] 06-23-2021 SARS-CoV-2 (COVID-19 ) mRNA BNT-162b2 vax Barcenas SALAM [facility] 06-08-2021 influenza virus vaccine, split virus (incl. purified surface antigen) Bettina Bolton Other [facility] Other 06-08-2021 influenza virus vaccine, unspecified formulation [facility] 11-07-2020 SARS-CoV-2 (COVID-19 ) mRNA BNT-162b2 vax Barcenas SALAM [facility] Comment on above: Result Comment: 2022: [id number] 10-20-2020 SARS-CoV-2 (COVID-19 ) mRNA BNT-162b2 vax Barcenas SALAM [facility] Comment on above: Result Comment: 2022: [id number] 06-06-2020 influenza virus vaccine, split virus (incl. purified surface antigen) Bettina Bolton Other [facility] Other 06-06-2020 influenza virus vaccine, unspecified formulation [facility] 07-10-2019 influenza virus vaccine, split virus (incl. purified surface antigen) Bettina Bolton Other [facility] [employer] Other 07-10-2019 influenza virus vaccine, unspecified formulation [facility] 07-06-2018 influenza virus vaccine, split virus (incl. purified surface antigen) Bettina Bolton Other [facility] [employer] Other 07-06-2018 influenza virus vaccine, unspecified formulation Barcenas SALAM [facility] 07-07-2017 influenza virus vaccine, split virus (incl. purified surface antigen) Bettina Bolton Other [facility] [employer] Other 07-07-2017 influenza virus vaccine, unspecified formulation Barcenas SALAM [facility] 07-07-2017 pneumococcal polysaccharide vaccine, 23 valent Barcenas SALAM [facility] 08-10-2016 pneumococcal conjuga te vaccine, 13 valent Bettina Bolton Other [facility] 08-10-2016 pneumococcal Conjuga te, unspecified formulation; Translations: [Need for prophylactic vaccination against Streptococcus pneumoniae (pneumococcus)] Bettina Bolton Other [facility] [employer] Other 07-16-2016 influenza virus vaccine, split virus (incl. purified surface antigen) Bettina Bolton Other [facility] [employer] Other 07-16-2016 influenza virus vaccine, unspecified formulation Barcenas SALAM [facility] 04-07-2016 pneumococcal polysaccharide vaccine, 23 valent Barcenas SALAM [facility] 06-30-2015 influenza virus vaccine, split virus (incl. purified surface antigen) Bettina Bolton Other [facility] [employer] Other 06-30-2015 influenza virus vaccine, unspecified formulation [facility] 04-10-2015 diphtheria, tetanus toxoids and acellular pertussis vaccine, unspecified formulation Bettina Hoang Other [facility] 06-27-2014 tetanus and diphther ia toxoids, adsorbed, preservative free, for adult use (5 Lf of tetanus toxoid and 2 Lf of diphtheria toxoid) Bettina Hoang Other [facility] 06-28-2013 tetanus and diphther ia toxoids, adsorbed, preservative free, for adult use (5 Lf of tetanus toxoid and 2 Lf of diphtheria toxoid) Bettina Hoang Other [facility] 04-11-2013 zoster vaccine, live Barcenas S ALAM [facility] 03-22-2013 zoster vaccine, live Barcenas S ALAM [facility] 07-10-2012 influenza, whole Barcenas SALAM [facility] 06-21-2011 influenza, whole Barcenas SALAM [facility] Payers Date Payer Category Payer Medicare [id number] 1959 Private Health Insurance [id number] 1950 Unknown [id number] 1950 Unknown [id number] 1950 Unknown [id number] 1950 Unknown [id number] 1950 Unknown [id number] 1950 Unknown [id number] 1950 Unknown [id number] Unknown [facility] Health Claims [id number] Social History Date Type Detail Facility Start: 07-06-2021 End: 04-22-2023 Tobacco smoking status WAIS Former smoker [facility] Start: 07-06-2021 End: 01-24-2023 Alcohol intake Current drinker of alcohol (finding) [employer] Phone: Start: 07-06-2021 End: 01-24-2023 Tobacco Comment when he was young [employer] Work Phone: Start: 07-06-2021 Alcohol Comment socially [employer] Work Phone: Start: 1950 Sex Assigned At Not on [facility] [employer] Work Phone: Start: 12-31-2022 End: 01-10-2023 Exposure to SARS-CoV-2 (event) Not sure [employer] Tobacco smoking status No Smokin g Status Entered [facility] Sex Assigned At Male [facility] History of tobacco use Current smoker [facility] Work Phone: History of tobacco use Cigarette Smoker [facility] Work Phone: Tobacco smoking status Never [facility] Start: 1950 Sex Assigned At Male [facility] Start: 03-06-2024 Tobacco smoking stat [facility] Never smoked tobacco (finding) [facility] Medical Equipment Procedure Code Equipment Code Equipment Origin al Text Equipment Identifier Dates Lens Intraocular Bcnvx 20.5+ Diopt 6x12.5 Mm Ac[employer] - [id number] Start: 07-06-2021 Lens Intocu +20 Diopt L12.5mm Dia6mm 119.1 Optical/118.7 A - [id number] Start: 01-24-2023 Functional Status Date Assessment Result Facility 12-21-2023 Functional Status N/A [facility] 04-22-2023 Functional Status N/A [facility] 02-24-2023 Functional Status N/A [facility] Clinical Notes 07-06-2021 to 06-21-2024 Note Date & Type Note Facility 06-21-2024 Hospital Discharge instructions Ambulatory OrdersReferral to Gastroenterology Time Frame: 06/21/24, Location: None [facility] Work Phone: 05-19-2023 Evaluation note Encounter Date Diagnosis Assessment Notes Apr, Medicare annual wellness visit, subsequent (ICD-10 - Z00.00) Personalized health advice was given to the beneficiary including a written plan for screenings discussed and provided. Advanced care planning reviewed and/or information given as requested. Additional counseling was provided here today in regards to, [ ]. The above visit was performed by [ ], under direct supervision of [ ]. Document reviewed and amended by provider signed below. Apr, Essential (primary) hypertension (ICD-10 - I10) Blood pressure remains well controlled at this time. Denies cardiac symptoms. Shows no signs or symptoms or poor control. Patient to continue with above medication and we will continue to monitor. Advised to pay attention to body and symptoms. Any developing patterns. Stay well hydrated. [employer] Other 08-24-2023 Evaluation note* Encounter Date Diagnosis Assessment Notes Treatment Notes Treatment Clinical Notes Apr, Medicare annual wellness visit, subsequent (ICD-10 - Z00.00) Personalized health advice was given to the beneficiary including a written plan for screenings discussed and provided. Advanced care planning reviewed and/or information given as requested. Additional counseling was provided here today in regards to, [ ]. The above visit was performed by [ ], under direct supervision of Dr. [ ]. Document reviewed and amended by provider signed below. [facility] Other 07-28-2023 Hospital Discharge instructions Patient Education 04/22/2023 08:12:43 Fatty Liver Disease Fatty Liver Disease The liver converts food into energy, removes toxic material from the blood, makes important proteins, and absorbs necessary vitamins from food. Fatty liver disease occurs when too much fat has built up in your liver cells. Fatty liver disease is also called hepatic steatosis. In many cases, fatty liver disease does not cause symptoms or problems. It is often diagnosed when tests are being done for other reasons. However, over time, fatty liver can cause inflammation that may lead to more serious liver problems, such as scarring of the liver (cirrhosis) and liver failure. Fatty liver is associated with insulin resistance, increased body fat, high blood pressure (hypertension), and high cholesterol. These are features of metabolic syndrome and increase your risk for stroke, diabetes, and heart disease. What are the causes? This condition may be caused by components of metabolic syndrome: Obesity. Insulin resistance. High cholesterol. Other causes: Alcohol abuse. Poor nutrition. Bosworth syndrome. . Certain drugs. Poisons. Some viral infections. What increases the risk? You are more likely to develop this condition if you: Abuse alcohol. Are overweight. Have diabetes. Have hepatitis. Have a high triglyceride level. Are . What are the signs or symptoms? Fatty liver disease often does not cause symptoms. If symptoms do develop, they can include: Fatigue and weakness. Weight loss. Confusion. Nausea, vomiting, or abdominal pain. Yellowing of your skin and the white parts of your eyes (jaundice). Itchy skin. How is this diagnosed? This condition may be diagnosed by: A physical exam and your medical history. Blood tests. Imaging tests, such as an ultrasound, CT scan, or MRI. A liver biopsy. A small sample of liver tissue is removed using a needle. The sample is then lookedat under a microscope. How is this treated? Fatty liver disease is often caused by other health conditions. Treatment for fatty liver may involve medicines and lifestyle changes to manage conditions such as: Alcoholism. High cholesterol. Diabetes. Being overweight or obese. Follow these instructions at home: Do not drink alcohol. If you have trouble quitting, ask your health care provider how to safely quit with the help of medicine or a supervised program. This is important to keep your condition from getting worse. Eat a healthy diet as told by your health care provider. Ask your health care provider about working with a dietitian to develop an eating plan. Exercise regularly. This can help you lose weight and control your cholesterol and diabetes. Talk to your health care provider about an exercise plan and which activities are best for you. Take fqqp-lqt-gtprdtz and prescription medicines only as told by your health care provider. Keep all follow-up visits. This is important. Contact a health care provider if: You have trouble controlling your: ?Blood sugar. This is especially important if you have diabetes. ?Cholesterol. ?Drinking of alcohol. Get help right away if: You have abdominal pain. You have jaundice. You have nausea and are vomiting. You vomit blood or material that looks like coffee grounds. You have stools that are black, tar-like, or bloody. Summary Fatty liver disease develops when too much fat builds up in the cells of your liver. Fatty liver disease often causes no symptoms or problems. However, over time, fatty liver can causeinflammation that may lead to more serious liver problems, such as scarring of the liver (cirrhosis). You are more likely to develop this condition if you abuse alcohol, are , are overweight, have diabetes, have hepatitis, or have high triglyceride or cholesterol levels. Contact your health care provider if you have trouble controlling your blood sugar, cholesterol, ordrinking of alcohol. This information is not intended to replace advice given to you by your health care provider. Make sure you discuss any questions you have with your health care provider. Document Revised: 06/25/2021 Document Reviewed: 06/25/2021 [employer] Patient Education 2022 [employer]. Follow Up Care 03/30/2023 14:27:43 With:ALESSIO KHALIL, YANG Barcenas, [facility] Address: [address] [place], [place] [address] [address] [place] [address] When:2 to 4 weeks [facility] [phone] Evaluation + Plan note Future Scheduled Tests Laboratory* HCV RNA by PCR, Qn Rfx Diane 02/24/23 * Aqcyp-2-Knowcjnwcaw 02/24/23 * Ceruloplasmin 02/24/23 * Antimitochondrial Antibody, Quantitative 02/24/23 * Smooth Muscle Antibody Screen 02/24/23 * DOUG w/Reflex if POS 02/24/23 * TIBC Calculated 02/24/23 * HCV Antibody RFX to Quant PCR 02/24/23 * CBC w/ Indices 02/24/23 * Comprehensive Metabolic Panel 02/24/23 * Hepatitis B Surface Antibody 02/24/23 * Hepatitis B Surface Antigen 02/24/23 * Iron Level 02/24/23 * PT 02/24/23 * Transferrin 02/24/23 [facility]05-01-2023 History of Present illness Narrative* Carolyn Keller RN - 01/24/2023 11:28 AM EDT Pt verbalized readiness to go home. Discharge instructions given to pt and daughter. Verbalized understanding and all questions answered at this time. Discharge Criteria Inpatients must meet Criteria 1 through 7. All other patients are either YES or N/A. If a NO is chosen then Anesthesia or Surgeon must be notified. 1. Minimum 30 minutes after last dose of sedative medication, minimum 120 minutes after last dose of reversal agent. Yes 2. Systolic BP stable within 20 mmHg for 30 minutes & systolic BP between 90 & 180 or within 10 mmHg of baseline. Yes 3. Pulse between 60 and 100 or within 10 bpm of baseline. Yes 4. Spontaneous respiratory rate >/= 10 per minute. Yes 5. SaO2 >/= 95 or >/= baseline. Yes 6. Able to cough and swallow or return to baseline function. Yes 7. Alert and oriented or return to baseline mental status. Yes 8. Demonstrates controlled, coordinated movements, ambulates with steady gait, or return to baseline activity function. Yes 9. Minimal or no pain or nausea, or at a level tolerable and acceptable to patient. Yes 10. Takes and retains oral fluids as allowed. Yes 11. Procedural / perioperative site stable. Minimal or no bleeding. Yes 12. If GI endoscopy procedure, minimal or no abdominal distention or passing flatus. N/A 13. Written discharge instructions and emergency telephone number provided. Yes 14. Accompanied by a responsible adult. Yes * Zaina Mcdonald RN - 01/24/2023 10:38 AM EDT Right eye cataract emulsified * Bhumika Cam RN - 01/10/2023 1:30 PM EDT Patient received from 's office, NPO and pre-op medication instructions to be taken on the day of the procedure. Patient states he received eye drops and instructions from the office. Reminded to bring eye drops as well as the bag he received from the office, the day of procedure for further instructions. * Bhumika Cam RN - 01/10/2023 1:26 PM EDT Attempted PAT phone call; no answer; message left to return PAT phone call. [facility] [employer] Work Phone: [phone]) 810-747005-01-2023 Hospital Discharge instructions* Discharge Instructions* Carolyn Keller RN - 01/24/2023 10:58 AM EDT SAME DAY SURGERY DISCHARGE INSTRUCTIONS 1. Do not drive or operate hazardous machinery for 24 hours. 2. Do not make important personal or business decisions for 24 hours. 3. Do not drink alcoholic beverages for 24 hours. 4. Do not smoke tobacco products for 24 hours. 5. Limit your activities for 24 hours. Do not engage in heavy work until your surgeon gives you permission. 6. Patient should not be left alone for 12-24 hours following surgical procedure. 7. Wash hands before and after incision care. It is important to practice good personal hygiene during the post op period. 8. Report the following signs or any questions regarding your physical condition to your surgeon immediately: Excessive swelling of, or around the wound area. Redness. Temperature of 100 degrees (F) or above. Excessive pain. 9. Call your surgeon for any questions regarding your surgery. CATARACT DISCHARGE INSTRUCTIONS Do not remove eye patch/shield today. Protect the operated eye during sleep by covering it with clear plastic shield. Tape the shield securely to the face before retiring . Do this for one week after surgery. Avoid bumping the operated eye during the daytime. Sensitivity to light and watering of the eye is normal during the first month. Wearing of dark glasses will help these symptoms and this is optional. Minor crusting and discharge adherent to the lid margins will persist till the incision heals. Cleanse the lids by application of a warm compress several times a day as needed. Use of either the operated eye or unoperated eye is not harmful. Until the new glasses are prescribed, the operated eye may be out of focus and may not see details clearly. Vision maybe clearer in the operated eye without glasses. You may do everything necessary to care for yourself, including hair care, tooth brushing, dressing, etc. Light work,including stooping over and lifting, is not harmful. Please phone if any problems arise during the healing period. The office number is [phone]. Take surgery bag and all eye drops to Dr. Wagner's office tomorrow at 9:05am. You may resume your normal diet. Start your eye drops tomorrow after your post-op appointment: Ofloxacin/Polytrim one drop to the operated eye 4 times daily Prednisolone one drop to the operated eye 4 times daily [facility] [employer] Phone: [phone] 969-810810-11-2021 History of Present illness Narrative* Carri Morelos RN - 07/06/2021 10:33 AM EDT Discharge instructions given to pt and son.Discharge Criteria Inpatients must meet Criteria 1 through 7. All other patients are either YES or N/A. If a NO is chosen then Anesthesia or Surgeon must be notified. 1. Minimum 30 minutes after last dose of sedative medication, minimum 120 minutes after last dose of reversal agent. Yes 2. Systolic BP stable within 20 mmHg for 30 minutes & systolic BP between 90 & 180 or within 10 mmHg of baseline. Yes 3. Pulse between 60 and 100 or within 10 bpm of baseline. Yes 4. Spontaneous respiratory rate >/= 10 per minute. Yes 5. SaO2 >/= 95 or >/= baseline. Yes 6. Able to cough and swallow or return to baseline function. Yes 7. Alert and oriented or return to baseline mental status. Yes 8. Demonstrates controlled, coordinated movements, ambulates with steady gait, or return to baseline activity function. Yes 9. Minimal or no pain or nausea, or at a level tolerable and acceptable to patient. Yes 10. Takes and retains oral fluids as allowed. Yes 11. Procedural / perioperative site stable. Minimal or no bleeding. Yes 12. If GI endoscopy procedure, minimal or no abdominal distention or passing flatus. N/A 13. Written discharge instructions and emergency telephone number provided. Yes 14. Accompanied by a responsible adult. Yes documented in this [facility] [employer] Work Phone: evaluation + Plan note No data available for this section [facility] Evaluation + Plan note Future Appointments Appointment Date:03/09/2023 09:30:00 AM Scheduled Provider: Location:.[facility] Appointment Type:US Abdominal/Pelvis (FT) Appointment Date:03/09/2023 10:00:00 AM Scheduled Provider: Location:[facility] Appointment Type:Surgery FT Future Scheduled Tests Laboratory* HCV RNA by PCR, Qn Rfx Diane 02/24/23 * [id number] 02/24/23 * Ceruloplasmin 02/24/23 * Antimitochondrial Antibody, Quantitative 02/24/23 * Smooth Muscle Antibody Screen 02/24/23 * DOUG w/Reflex if POS 02/24/23 * TIBC Calculated 02/24/23 * HCV Antibody RFX to Quant PCR 02/24/23 * CBC w/ Indices 02/24/23 * Comprehensive Metabolic Panel 02/24/23 * Hepatitis B Surface Antibody 02/24/23 * Hepatitis B Surface Antigen 02/24/23 * Iron Level 02/24/23 * PT 02/24/23 * Transferrin 02/24/23 Radiology* US Liver 03/09/23 [facility] Evaluation + Plan note Future Appointments Appointment Date:04/22/2023 08:40:00 AM Scheduled Provider:Abi Jeter CNP Location:[facility] Appointment Type:[facility] Follow Up Future Scheduled Tests Laboratory* HCV RNA by PCR, Qn Rfx Diane 02/24/23 * [id number] 02/24/23 * Ceruloplasmin 02/24/23 * Antimitochondrial Antibody, Quantitative 02/24/23 * Smooth Muscle Antibody Screen 02/24/23 * DOUG w/Reflex if POS 02/24/23 * TIBC Calculated 02/24/23 * HCV Antibody RFX to Quant PCR 02/24/23 * CBC w/ Indices 02/24/23 * Comprehensive Metabolic Panel 02/24/23 * Hepatitis B Surface Antibody 02/24/23 * Hepatitis B Surface Antigen 02/24/23 * Iron Level 02/24/23 * PT 02/24/23 * [facility]ments Appointment Date:06/25/2024 12:15:00 PM Scheduled Provider:Janae Warren MD Location:[facility] Appointment Type:[facility] Follow Up Diagnostic Tests Pending * Comprehensive Metabolic Panel 06/22/24 * CBC w/ Auto Diff 06/22/24 * PT 06/22/24 [facility] Evaluation + Plan note Future Appointments Appointment Date:05/03/2023 01:15:00 PM Scheduled Provider:Alexei Ghosh MD Location:[facility] Appointment Type[facility] Follow Up Future Scheduled Tests Laboratory* HCV RNA by PCR, Qn Rfx Diane 02/24/23 * [id number] 02/24/23 * Ceruloplasmin 02/24/23 * Antimitochondrial Antibody, Quantitative 02/24/23 * Smooth Muscle Antibody Screen 02/24/23 * DOUG w/Reflex if POS 02/24/23 * TIBC Calculated 02/24/23 * HCV Antibody RFX to Quant PCR 02/24/23 * CBC w/ Indices 02/24/23 * Comprehensive Metabolic Panel 02/24/23 * Hepatitis B Surface Antibody 02/24/23 * Hepatitis B Surface Antigen 02/24/23 * Iron Level 02/24/23 * PT 02/24/23 * Transferrin 02/24/23 [facility] Evaluation note* Diagnosis Age-related nuclear cataract of left eye- Primary Senile nuclear sclerosis documented in this encounter [employer] Work Phone: evaluation note* Diagnosis Combined forms of age-related cataract of right eye- Primary Other and combined forms of senile cataract documented in this encounter [facility] [employer] Work Phone: evaluation noteNo InformationNort ilustrum Other Evaluation noteNo assessment information available [facility] Work Phone: Evaluation note* Diagnosis Onset Date Resolution Status Abdominal pain acute Elevated LFTs acute Screening PSA (prostate specific antigen) acute [facility] Work Phone: Evaluation note* Diagnosis Onset Date Resolution Status Encounter for screening colonoscopy acute [facility] Work Phone: Evaluation note* Diagnosis Onset Date Resolution Status Encounter for screening colonoscopy acute Bronchitis acute [facility] Work Phone: History general Narrative - Reported* Type Description Date Medical History Problem Title : ADL Overall Assessment, Problem Description : ADL Overall Assessment, Problem Comment : independent, Problem Status : Active,, Medical History Problem Title : ADL Summary, Problem Description : ADL Summary, Problem Comment : Bathing~independent^Dressing~independent^Eating~independent^Sunday leting~independent^Transferring~independent^Continence~independ ent, Problem Status : Active,, Medical History Problem Title : comp liance with medical treatment, Problem Description : compliance with medical treatment, Problem Comment : Done, Problem Status : Active,, Medical History Problem Title : Depr ession Screening, Problem Description : Depression Screening, Problem Comment : Negative, Problem Status : Active,, Medical History Problem Title : Depr ession: Baseline PHQ-9 total score?, Problem Description : Depression: Baseline PHQ-9 total score?, Problem Comment : 0, Problem Status : Active,, Medical History Problem Title : Diab etes Mellitus, Problem Description : Diabetes Mellitus, Problem Comment : No, Problem Status : Active,, Medical History Problem Title : Fall assessment-Total score, Problem Description : Fall assessment-Total score, Problem Comment : Complete Low Risk, Problem Status : Active,, Medical History Problem Title : Fall Risk Assessment: I am worried about falling, Problem Description : Fall Risk Assessment: I am worried about falling, Problem Comment : No, Problem Status : Active,, Medical History Problem Title : Fall Risk Assessment: Sometimes I feel unsteady when I am walking, Problem Description : Fall Risk Assessment: Sometimes I feel unsteady when I am walking, Problem Comment : No, Problem Status : Active,, Medical History Problem Title : fall s in the last twelve months, Problem Description : falls in the last twelve months, Problem Comment : No, Problem Status : Active,, Medical History Problem Title : Fall s: Risk Assessment - Patient screened for falls, fall risk, Problem Description : Falls: Risk Assessment - Patient screened for falls, fall risk, Problem Comment : Done, Problem Status : Active,, Medical History Problem Title : IADL Overall Assessment, Problem Description : IADL Overall Assessment, Problem Comment : independent, Problem Status : Active,, Medical History Problem Title : IADL Summary, Problem Description : IADL Summary, Problem Comment : Transportation~independent^Meal/Food Preparation~independent^Shopping Errands~independent^Housekeeping/Chores~independent^Money Management/Finances~independent^Medication Management~independent^Ability to Use Telephone~independent^Laundry~independent, Problem Status : Active,, Medical History Problem Title : Inju ry sustained from fall(s)?, Problem Description : Injury sustained from fall(s)?, Problem Comment : No, Problem Status : Active,, Medical History Problem Title : Is P atient on Medicare. Used for Residency Programs to evaluate precepting guidelines from Medicare, Problem Description : Is Patient on Medicare. Used for Residency Programs to evaluate precepting guidelines from Medicare, Problem Comment : Yes, Problem Status : Active,, Medical History Problem Title : [facility] Annual Wellness Exam, Problem Description : Medicare Annual Wellness Exam, Problem Comment : [id number], Problem Status : Active,, Medical History Problem Title : [facility] care Part B,CMOD Checklist #1, Problem Description : Medicare Part B,CMOD Checklist #1, Problem Comment : Yes, Problem Status : Active,, Medical History Problem Title : Ment al Status Exam summary of all, Problem Description : Mental Status Exam summary of all, Problem Comment : Orientation to Time~5/5^Orientation to Place~5/5^Registration~11/26^Attention/Calculation~01/28^Recall~11/26 ^Language-name 2 objects~10/28^Language-repeat~09/26^Language-follow 3-step command~11/26^Language-read and follow direction~09/26^Write a sentence~09/26^Copy design~09/26, Problem Status : Active,, Medical History Problem Title : Ment al Status Exam total score, Problem Description : Mental Status Exam total score, Problem Comment : , Problem Status : Active,, Medical History Problem Title : no k nown problems, Problem Description : no known problems, Problem Comment : F, Problem Status : Active,, Medical History Problem Title : Numb er of previous fall in past year, Problem Description : Number of previous fall in past year, Problem Comment : 0, Problem Status : Active,, Medical History Problem Title : oste oporosis risk, Problem Description : osteoporosis risk, Problem Comment : No, Problem Status : Active,, Medical History Problem Title : past medical history E&M, Problem Description : past medical history E&M, Problem Comment : Hyperlipidemia GERD, Problem Status : Active,, Medical History Problem Title : past medical history reviewed, Problem Description : past medical history reviewed, Problem Comment : reviewed - no changes required, Problem Status : Active,, Medical History Problem Title : Edith ent Health Questionaire 9 item inventory, Problem Description : Patient Health Questionaire 9 item inventory, Problem Comment : None, Problem Status : Active,, Medical History Problem Title : PHQ- 9 (patient questionnaire) score, Problem Description : PHQ-9 (patient questionnaire) score, Problem Comment : 0, Problem Status : Active,, Medical History Problem Title : PHQ- 9 Diagnosis, Problem Description : PHQ-9 Diagnosis, Problem Comment : No indication of depression, Problem Status : Active,, Medical History Problem Title : PHQ2 Questionairre Score, Problem Description : PHQ2 Questionairre Score, Problem Comment : 0, Problem Status : Active,, Medical History Problem Title : PHQ9 Question One score, Problem Description : PHQ9 Question One score, Problem Comment : 0, Problem Status : Active,, Medical History Problem Title : PHQ9 Question Two score, Problem Description : PHQ9 Question Two score, Problem Comment : 0, Problem Status : Active,, Medical History Problem Title : Problems Reconci led, Problem Status : Active,, Medical History Problem Title : tadeo l disease, hx of, Problem Description : renal disease, hx of, Problem Comment : No, Problem Status : Active,, Medical History Problem Title : smok ing/tobacco cessation, patient education and counseling, Problem Description : smoking/tobacco cessation, patient education and counseling, Problem Comment : no, Problem Status : Active,, Medical History Problem Title : Unsp ecified Diagnosis, Problem Status : Active,, Medical History Problem Title : very low density lipoproteins, Problem Description : very low density lipoproteins, Problem Comment : 21.0, Problem Status : Active,, Surgical History Problem Title : appe ndectomy, history of, Problem Description : appendectomy, history of, Problem Comment : yes, Problem Status : Active, Surgical History Problem Title : past surgical history reviewed, Problem Description : past surgical history reviewed, Problem Comment : reviewed - no changes required, Problem Status : Active, Surgical History Problem Title : surg ical procedures, hx of, Problem Description : surgical procedures, hx of, Problem Comment : Appendectomy age 7 , Problem Status : Active, [facility] Other Hospital Discharge instructions* Instructions* Ana Maria Wagner, DO - 07/06/2021 CATARACT DISCHARGE INSTRUCTIONS Do not remove eye patch/shield today. Protect the operated eye during sleep by covering it with clear plastic shield. Tape the shield securely to the face before retiring . Do this for one week after surgery. Avoid bumping the operated eye during the daytime. Sensitivity to light and watering of the eye is normal during the first month. Wearing of dark glasses will help these symptoms and this is optional. Minor crusting and discharge adherent to the lid margins will persist till the incision heals. Cleanse the lids by application of a warm compress several times a day as needed. Use of either the operated eye or unoperated eye is not harmful. Until the new glasses are prescribed, the operated eye may be out of focus and may not see details clearly. Vision maybe clearer in the operated eye without glasses. You may do everything necessary to care for yourself, including hair care, tooth brushing, dressing, etc. Light work,including stooping over and lifting, is not harmful. Please phone if any problems arise during the healing period. The office number is [phone]. Take surgery bag and all eye drops to Dr. Wagner's office tomorrow at 9:05am. You may resume your normal diet. Start your eye drops tomorrow after your post-op appointment: Ofloxacin/Polytrim one drop to the operated eye 4 times daily Prednisolone one drop to the operated eye 4 times daily [facility] Work [facility]: Hospital Discharge instructions No data available for this section [facility] Progress note No data available for this section [facility] Advance Directives Latest Code Status on File Code Status Date Activated Date Inactivated Comments Full Code 07/06/2021 9:02 AM Latest Code Status on File Code Status Date Activated Date Inactivated Comments Full Code 01/24/2023 9:26 AM Code Status History Code Status Date Activated Date Inactivated Comments Full Code 07/06/2021 9:02 AM 07/06/2021 3:12 PM Advance Directive Response Recorded Date/ Time Advance Directives No January 04, 2 024 1:23pm Summary Purpose Family History Relationship Condition Age at Onset Recorded Date/T krishna father Unknown Not Specified Unknown Relationship Condition Age at Onset Recorded Date/T krishna father Unknown mother Unknown Chief Complaint and Reason for Visit Chief Complaint check up Chief Complaint check up go over GI information Reason for Visit Abdominal pain Elevated LFTs Screening PSA (prostate specific antigen) Chief Complaint Colonoscopy Discussi on Reason for Visit Encounter for screen ing colonoscopy Chief Complaint Colonoscopy Discussi on sore throat/cough Reason for Visit Encounter for screen ing colonoscopy Bronchitis Additional Source Comments Scheduled Active and Recently Administ ered Medications (unrecognized section and content) Medication Order 07/04/2021 07/05/2021 07/06/2021 phenylephrine (MYDFRIN) 2.5 % ophthalmic solution 1 drop 1 drop, Left Eye, SEE ADMIN INSTRUCTIONS, Starting on 07/06/21 at 0902, To operative eye(s) for 3-5 doses every 5 minutes, starting 30 minutes prior to surgery until dilated, Pre-op (day of surgery) 0913 (Given - Provid er: Guillermina Morgan RN)09 (Given - Provider: Guillermina Morgan RN)926 (Given - Provider: Guillermina Morgan RN) proparacaine (ALCAINE) 0.5 % ophthalmic solution 1 drop 1 drop, Left Eye, SEE ADMIN INSTRUCTIONS, Starting on Tue07/06/21 at 0902, Into the operative eye(s) every 5 minutes for PRN doses starting 30 minutes prior to surgery., Pre-op (day of surgery) 912 (Given - Provid er: Guillermina Morgan RN)922 (Given - Provider: Guillermina Morgan RN)926 (Given - Provider: Guillermina Morgan RN) sodium chloride flush 0.9 % injection 5-40 mL 5-40 mL, IntraVENous, EVERY 12 HOURS SCHEDULED (2 times per day), First dose on Tue07/06/21 at 0930, For Line Patency: Peripheral IV = 5 mL; Midline or Central Line = 10 mL/lumen. If following IV push medication, administer flush at same rate as the IV push. Flush volume is determined by type of infusion therapy being given. For non-viscous solutions use: Peripheral IV = 5 mL Midline or Central Line = 10 mL/lumen For viscous solutions (i.e. blood components, parenteral nutrition, contrast media, or after obtaining blood sample) use: Peripheral IV = 10 mL Midline or Central Line = 20 mL/lumen, Pre-op (day of surgery) 0930 (Due)2100 (Due) tetracaine (TETRAVISC) 0.5 % ophthalmic solution 1 drop 1 drop, Left Eye, SEE ADMIN INSTRUCTIONS, Starting on Tue07/06/21 at 0902, Into the operative eye(s) every 5 minutes for PRN doses starting 30 minutes prior to surgery., Pre-op (day of surgery) tropicamide (MYDRIACYL) 1 % ophthalmic solution 1 drop 1 drop, Left Eye, SEE ADMIN INSTRUCTIONS, Starting on Tue07/06/21 at 0902, To operative eye(s) for 3-5 doses every 5 minutes, starting 30 minutes prior to surgery until dilated, Pre-op (day of surgery) 912 (Given - Provid er: Guillermina Morgan RN)922 (Given - Provider: Guillermina Morgan RN)926 (Given - Provider: Guillermina Morgan RN) Continuous Medication Order 07/04/2021 07/05/2021 07/06/2021 0.9 % sodium chloride infusion IntraVENous, at 125 mL/hr, CONTINUOUS, Starting on Tue07/06/21 at 0930, Pre-op (day of surgery) 0923 (New Bag - Prov ider: Guillermina Morgan RN)1025 (Stopped - Provider: Carri Morelos RN) PRN Medication Order 07/04/2021 07/05/2021 07/06/2021 0.9 % sodium chloride infusion 25 mL, IntraVENous, at 100 mL/hr, PRN, If patient receiving piggyback infusions without ordered maintenance IV fluids or with frequent/long duration piggyback infusions, Starting on Tue07/06/21 at 0902, Administer at the same rate as the piggyback being infused., Pre-op (day of surgery) balanced salts (BSS) 500 mL, EPINEPHrine (EPINEPHrine HCL) 0.5 mg (CANCELED) PRN, Starting on Tue07/06/21 at 0944, Intra-op 0944 (Given - Provid er: Ana Maria Wagner DO) fentaNYL (SUBLIMAZE) injection (CANCELED) PRN, Starting on Tue07/06/21 at 0937, Intra-op 0937 (Given - Provid er: Bobo Mccollum RN) lidocaine PF 1 % injection (CANCELED) PRN, Starting on Tue07/06/21 at 0944, Intra-op 0944 (Given - Provid er: Ana Maria Wagner DO) midazolam (VERSED) injection (CANCELED) PRN, Starting on Tue07/06/21 at 0937, Intra-op 0937 (Given - Provid er: Bobo Mccollum RN) sodium chloride flush 0.9 % injection 5-40 mL 5-40 mL, IntraVENous, PRN, Line Care, Starting on Tue07/06/21 at 0902, For Line Patency: Peripheral IV = 5 mL; Midline or Central Line = 10 mL/lumen. If following IV push medication, administer flush at same rate as the IV push. Flush volume is determined by type of infusion therapy being given. For non-viscous solutions use: Peripheral IV = 5 mL Midline or Central Line = 10 mL/lumen For viscous solutions (i.e. blood components, parenteral nutrition, contrast media, or after obtaining blood sample) use: Peripheral IV = 10 mL Midline or Central Line = 20 mL/lumen, Pre-op (day of surgery) sodium hyaluronate 16 MG/ML solution (CANCELED) PRN, Starting on Tue07/06/21 at 0944, Intra-op 0944 (Given - Provid er: Ana Maria Wagner DO) tetracaine (TETRAVISC) 0.5 % ophthalmic solution (CANCELED) PRN, Starting on Tue07/06/21 at 0945, Intra-op 0945 (Given - Provid er: Ana Maria Wagner DO) Scheduled Medication Order 01/22/2023 01/23/2023 01/24/2023 phenylephrine (MYDFRIN) 2.5 % ophthalmic solution 1 drop 1 drop, Right Eye, SEE ADMIN INSTRUCTIONS, 5 doses, Starting on Tue01/24/23 at 0926, Until Discontinued, To operative eye(s) for 3-5 doses every 5 minutes, starting 30 minutes prior to surgery, RPh - enter number of doses based on parameters defined by the physician in the admin. comments., Pre-op (day of surgery) 0947 (Given - Provid er: Guillermina Morgan RN)0954 (Given - Provider: Guillermina Morgan RN)1001 (Given - Provider: Guillermina Morgan RN) proparacaine (ALCAINE) 0.5 % ophthalmic solution 1 drop 1 drop, Right Eye, SEE ADMIN INSTRUCTIONS, Starting on Tue01/24/23 at 0926, Until Discontinued, Into the operative eye(s) every 5 minutes for PRN doses starting 30 minutes prior to surgery., Pre-op (day of surgery) 0947 (Given - Provid er: Guillermina Morgan RN)0954 (Given - Provider: Guillermina Morgan RN)1001 (Given - Provider: Guillermina Morgan RN) sodium chloride flush 0.9 % injection 5-40 mL 5-40 mL, IntraVENous, EVERY 12 HOURS SCHEDULED (2 times per day), First dose on Tue01/24/23 at 0945, Until Discontinued, For Line Patency: Peripheral IV = 5 mL; Midline or Central Line = 10 mL/lumen. If following IV push medication, administer flush at same rate as the IV push. Flush volume is determined by type of infusion therapy being given. For non-viscous solutions use: Peripheral IV = 5 mL Midline or Central Line = 10 mL/lumen For viscous solutions (i.e. blood components, parenteral nutrition, contrast media, or after obtaining blood sample) use: Peripheral IV = 10 mL Midline or Central Line = 20 mL/lumen, Pre-op (day of surgery) 0945 (Due)2100 (Due) tetracaine (TETRAVISC) 0.5 % ophthalmic solution 1 drop 1 drop, Right Eye, SEE ADMIN INSTRUCTIONS, Starting on Tue01/24/23 at 0926, Until Discontinued, Into the operative eye(s) every 5 minutes for PRN doses starting 30 minutes prior to surgery., Pre-op (day of surgery) 1025 (Given - Provid er: Zaina Mcdonald RN) tropicamide (MYDRIACYL) 1 % ophthalmic solution 1 drop 1 drop, Right Eye, SEE ADMIN INSTRUCTIONS, 5 doses, Starting on Tue01/24/23 at 0926, Until Discontinued, To operative eye(s) for 3-5 doses every 5 minutes, starting 30 minutes prior to surgery, RPh - enter number of doses based on parameters defined by the physician in the admin. comments., Pre-op (day of surgery) 0947 (Given - Provid er: Guillermina Morgan RN)0954 (Given - Provider: Guillermina Morgan, BRENDAN)1001 (Given - Provider: Guillermina Morgan RN) Continuous Medication Order 01/22/2023 01/23/2023 01/24/2023 0.9 % sodium chloride infusion IntraVENous, at 125 mL/hr, CONTINUOUS, Starting on Tue01/24/23 at 0945, Pre-op (day of surgery) 0945 (Due) lactated ringers IV soln infusion IntraVENous, at 100 mL/hr, CONTINUOUS, Starting on Tue01/24/23 at 0945, Pre-op (day of surgery) 1001 (New Bag - Prov ider: Guillermina Morgan RN)1109 (Stopped - Provider: Carolyn Keller, BRENDAN) PRN Medication Order 01/22/2023 01/23/2023 01/24/2023 0.9 % sodium chloride infusion IntraVENous, at 5-250 mL/hr, PRN, if patient receiving piggyback infusions and maintenance fluids are not ordered OR KVO fluids to protect IV site / prevent frequent line interruptions/ long duration, Starting on Tue01/24/23 at 0926, For piggyback infusion, administer at same rate as piggyback for a total of 25 mL. Enter 25 mL into dose field and piggyback rate into rate field of order. If piggyback is infusing at a rate less than 100 mL/hr, enter 25 mL into dose field and 100 mL/hr into rate field of order. For KVO fluids, enter rate of 20 mL/hr or less into rate field of order., Pre-op (day of surgery) balanced salts (BSS) 500 mL, EPINEPHrine (EPINEPHrine HCL) 1 mg/mL 0.5 mg (CANCELED) PRN, Starting on Tue01/24/23 at 1040, Intra-op 1040 (Given - Provid er: Ana Maria Wagner DO) lidocaine PF 1 % injection (CANCELED) PRN, Starting on Tue01/24/23 at 1041, Until Tue01/24/23 at 1052, Intra-op 1041 (Given - Provid er: Ana Maria Wagner DO) sodium chloride flush 0.9 % injection 5-40 mL 5-40 mL, IntraVENous, PRN, Starting on Tue01/24/23 at 0926, Until Discontinued, Line Care, After every IV line use, For Line Patency: Peripheral IV = 5 mL; Midline or Central Line = 10 mL/lumen. If following IV push medication, administer flush at same rate as the IV push. Flush volume is determined by type of infusion therapy being given. For non-viscous solutions use: Peripheral IV = 5 mL Midline or Central Line = 10 mL/lumen For viscous solutions (i.e. blood components, parenteral nutrition, contrast media, or after obtaining blood sample) use: Peripheral IV = 10 mL Midline or Central Line = 20 mL/lumen, Pre-op (day of surgery) tetracaine (TETRAVISC) 0.5 % ophthalmic solution (CANCELED) PRN, Starting on Tue01/24/23 at 1033, Until Tue01/24/23 at 1052, Intra-op 1033 (Given - Provid er: Ana Maria Wagner DO) Patient Care team informatio n (unrecognized section and content) Personnel Name: BETTINA BOLTON MD Address: Address: [address] [place] [address] Team Status: Active Member Role Status Dates Bettina Bolton MD Primary Care Provider Active Team Status: Inactive Member Role Status Dates Bettina Bolton MD Primary Care Provide r, Attending Provider Active Start: June 21, 2024 End: June 21, 2024 Team Status: Inactive Member Role Status Dates Bettina Bolton MD Primary Care Provider Active Start: July 18, 2024 End: July 18, 2024 Brigitte Vora APRN FRAME HAND-C Attending Provider Active Start: July 18, 2024 End: July 18, 2024 Pump Operator Relationship Specialty Start Date End Date Bettina Bolton MD [facility] [place] [id number] PCP - General Family Medicine 01/21/23 Team Status: Active Member Role Status Dates Bettina Bolton MD Primary Care Provide r, Attending Provider Active Start: December 13, 2023 Team Status: Inactive Member Role Status Dates Bettina Bolton MD Primary Care Provide r, Attending Provider Active Start: January 05, 2024 End: January 05, 2024 Team Status: Inactive Member Role Status Dates Bettina Bolton MD Primary Care Provide r, Attending Provider Active Start: March 06, 2024 End: March 06, 2024 Team Status: Active Member Role Status Dates Bettina Bolton MD Primary Care Provide r, Attending Provider Active Start: April 04, 2024 (unrecognized sect ion and content) No Status Records FoundNo Status Records FoundNo Status Records Found INFORMATION SOURCE (unrecogn ized section and content) DATE CREATED AUTHOR 10/29/2022 [facility] DATE CREATED AUTHOR AUTHOR'S ORGANIZ ATION 01/24/2023 [facility] DATE CREATED AUTHOR AUTHOR'S ORGANIZ ATION 06/27/2024 [facility] Reason for Visit (unrecogniz ed section and content) Specialty Diagnoses / Procedures Referred By Contac t Referred To Contact Diagnoses Combined forms of age-related cataract of right eye COMBINED FORNS OF AGE RELATED CAT 2+NS, 3+CS Procedures NV XCAPSL CTRC RMVL INSJ IO LENS PROSTH W/O ECP EYE CATARACT EMULSIFICATION IOL IMPLANT Ana Maria Wagner Y, DO [address] [place] [address] [facility] [address] [place] [address] Referral ID Status Reason Start Date Expiration Date Visits Re quested Visits Authorized [id number] 1 1 Goals (unrecognized section and content) Goals may be documented in a n alternate section FOR RECORDS PERTAINING TO PATIENTS WHO ARE OR HAVE BEEN ENROLLED IN A CHEMICAL DEPENDENCY/SUBSTANCEABUSE PROGRAM, SOME INFORMATION MAY BE OMITTED. This clinical summary was aggregated from multiple sources. Caution should be exercised in using it in the provision of clinical care. This summary normalizes information from multiple sources, and as a consequence, information in this document may materially change the coding, format and clinical context of patient data. In addition, data may be omitted in some cases. CLINICAL DECISIONS SHOULD BE BASED ON THE PRIMARY CLINICAL RECORDS. [employer] provides no warranty or guarantee of the accuracy or completeness of information in this document.
--- NOTE | 2024-11-09 18:53 | ECG_ITS ---
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
--- NOTE | 2024-11-09 18:53 | XR_ITS ---
The [place] [id number] Patient Name: ELVIS CARPENTER MRN: [id number] date: 1950 Sex: M Assigned Patient Location: ER Current Patient Location: Accession/Order Number: [id number] Exam Date: 11/09/2024 19:27 Report Date: 11/09/2024 22:11 At the request of: TAPAN ENCARNACION Procedure: XR chest 2V EXAMINATION: XR chest 2V, , 11/09/2024 4:27 PM [facility] INDICATION: cp HISTORY: Ordering Provider Reason for Exam: cp Technologist Note: Additional: COMPARISON: None. TECHNIQUE: Chest x-ray: Two views. FINDINGS: No pneumothorax, pleural effusion or focal airspace consolidation. Heart is normal in size. Bony thorax is unremarkable. XR/XR chest 2V IMPRESSION: No acute cardiopulmonary process. Electronically authenticated by: BAYRON CALDERÓN Date: 11/09/2024 22:11
--- NOTE | 2024-11-09 19:06 | PC.NURSE ---
States had a choking episode this AM which made him vomit
[2024-11-09 19:07] LABS: Basophils Percent Auto 0.7 % (0.2-2.0); Eosinophils Absolute Auto 0.1 10^3/uL (0.0-0.7); Eosinophils Percent Auto 2.4 % (0.9-7.0); Hematocrit 42.7 % (42.0-54.0); Hemoglobin 14.4 g/dL (14.0-18.0); Immature Granulocytes Abs Auto 0.01 10^3/uL (0.00-0.03); Immature Granulocytes Pct Auto 0.2 % (0.0-0.5); Lymphocytes Absolute Auto 0.9 10^3/uL (1.2-3.8); Lymphocytes Percent Auto 17.3 % (20.5-60.0); Mean Corpuscular HGB Conc 33.7 g/dL (29.9-35.2); Mean Corpuscular Hemoglobin 32.2 pg (25.9-34.0); Mean Corpuscular Volume 95.5 fL (80.0-94.0); Mean Platelet Volume 8.8 fL (9.5-13.5); Monocytes Absolute Auto 0.9 10^3/uL (0.3-0.8); Monocytes Percent Auto 17.1 % (1.7-12.0); Neutrophils Absolute Auto 3.4 10^3/uL (1.4-6.5); Neutrophils Percent Auto 62.3 % (43.0-75.0); Platelet Count 178 10^3/uL (150-450); Red Blood Count 4.47 10^6/uL (4.70-6.10); Red Cell Distribution Width 13.4 % (11.0-15.0); White Blood Count 5.4 10^3/uL (4.0-11.0)
[2024-11-09 19:15] LABS: Magnesium 1.9 mg/dL (1.8-2.4)
[2024-11-09] MEDS: ASPIRIN 81 MG TABLET.DR 162 MG PO (19:18)
--- NOTE | 2024-11-09 19:19 | ED_ITS ---
HPI HPI - General Adult General Chief complaint: Chest Pain Stated complaint: chest pressure Time Seen by Provider: 11/09/24 18:53 Source: patient Mode of arrival: walk-in Limitations: no limitations History of Present Illness HPI narrative: Patient presents to the ED for evaluation of chest pain. This morning while having cereal he started choking on it and felt some sharp chest pain that resolved shortly thereafter. There were no other associated symptoms although he did vomit. Around suppertime he complained of some heaviness in his chest that has also resolved and again was not associated with any other symptoms. Patient is not treated for hypertension or diabetes. He has been treated for hyperlipidemia in the past but his daughter states that when he lost weight after long term his numbers normalized and he was taken off of his lipid reducing medication. He has had a stress test in the remote past which he states was fine. He has had appendectomy around age 7. Related Data Home Medications ?Medication ?Instructions ?Recorded ?Confirmed No Known Home Medications 11/09/24 11/09/24 Allergies Allergy/AdvReac Type Severity Reaction Status Date / Time No Known Drug Allergies Allergy Verified 11/09/24 18:46 Opioid HPI Opioid Management Most Recent Opioid Data: No Data to Display Review of Systems ROS Narrative All other systems are reviewed and are negative other than what is mentioned in the HPI. [facility] Social History Little interest or pleasure in doing things: not at all Feeling down, depressed, or hopeless: not at all Exam Narrative Exam Narrative: Afebrile and nondistressed. Patient is in sinus rhythm on the monitor without ectopy. HEENT exam is normal to inspection. Neck is supple. Lung sounds are clear to auscultation bilaterally with good air entry. Heart has regular rate and rhythm. S1 and S2 are normal. Abdomen soft nontender. There is no distention, fluid wave or organomegaly. Patient does not have unilateral leg swelling or calf tenderness and there is no pedal edema. Speech and mentation are clear and intact and there is no facial asymmetry. He moves all extremities actively. Constitutional Vital Signs, click to edit/add: Last Vital Signs Temp 98.1 F 11/09/24 18:47 Pulse 75 11/09/24 20:10 Resp 22 H 11/09/24 20:10 BP 109/72 11/09/24 20:00 Pulse Ox 99 11/09/24 20:10 O2 Del Method Room Air 11/09/24 18:47 Course Vital Signs Vital signs: Vital Signs Temperature 98.1 F 11/09/24 18:47 Pulse Rate 80 11/09/24 18:47 Respiratory Rate 18 11/09/24 18:47 Blood Pressure 139/82 11/09/24 18:47 Pulse Oximetry 97 11/09/24 18:47 Oxygen Delivery Method Room Air 11/09/24 18:47 Temperature 98.1 F 11/09/24 18:47 Pulse Rate 75 11/09/24 20:10 Respiratory Rate 22 H 11/09/24 20:10 Blood Pressure 109/72 11/09/24 20:00 Pulse Oximetry 99 11/09/24 20:10 Oxygen Delivery Method Room Air 11/09/24 18:47 Medical Decision Making MDM Narrative Medical decision making narrative: Patient's twelve-lead EKG is interpreted by me and shows sinus rhythm with a rate of 78 beats a minute. There is left bundle branch block pattern. No old EKGs are available for comparison. Patient remains essentially asymptomatic in the ED. His cardiac biomarkers are normal and the lipase is also normal. He is felt stable for discharge and is advised outpatient follow-up for further workup as needed. He is to return anytime for worsening symptoms. Lab Data Labs: Lab Results 11/09/24 Range/Units 18:56 WBC 5.4 (4.0-11.0) 10^3/uL RBC 4.47 L (4.70-6.10) 10^6/uL Hgb 14.4 (14.0-18.0) g/dL Hct 42.7 (42.0-54.0) % MCV 95.5 H (80.0-94.0) fL MCH 32.2 (25.9-34.0) pg MCHC 33.7 (29.9-35.2) g/dL RDW 13.4 (11.0-15.0) % Plt Count 178 (150-450) 10^3/uL MPV 8.8 L (9.5-13.5) fL Neut % (Auto) 62.3 (43.0-75.0) % Lymph % (Auto) 17.3 L (20.5-60.0) % [place] % (Auto) 17.1 H (1.7-12.0) % Eos % (Auto) 2.4 (0.9-7.0) % Baso % (Auto) 0.7 (0.2-2.0) % Neut # (Auto) 3.4 (1.4-6.5) 10^3/uL Lymph # (Auto) 0.9 L (1.2-3.8) 10^3/uL [place] # (Auto) 0.9 H (0.3-0.8) 10^3/uL Eos # (Auto) 0.1 (0.0-0.7) 10^3/uL Baso # (Auto) 0.0 (0.0-0.1) 10^3/uL Abs Immat Gran (auto) 0.01 (0.00-0.03) 10^3/uL Imm/Tot Granulo (auto) 0.2 (0.0-0.5) % Sodium 139 (136-145) mmol/L Potassium 3.7 (3.5-5.1) mmol/L Chloride 102 (98-107) mmol/L Carbon Dioxide 30.9 (21.0-32.0) mmol/L Anion Gap 9.8 BUN 15.0 (7.0-18.0) mg/dL Creatinine 1.35 H (0.70-1.30) mg/dL Est GFR ( Amer) >60 (>=60 mL/min/1.73m^2) Est GFR (Non-Af Amer) 52 L (>=60 mL/min/1.73m^2) BUN/Creatinine Ratio 11.1 Glucose 116 H (74-106) mg/dL Calcium 8.7 (8.5-10.1) mg/dL Magnesium 1.9 (1.8-2.4) mg/dL Total Bilirubin 0.6 (0.2-1.0) mg/dL AST 14 L (15-37) U/L ALT 18 (16-63) U/L Alkaline Phosphatase 72 (46-116) U/L Troponin I High Sens 4.4 (4.0-76.1) pg/mL Total Protein 7.3 (6.4-8.2) g/dL Albumin 3.7 (3.4-5.0) g/dL Globulin 3.6 g/dL Albumin/Globulin Ratio 1.0 Lipase 31.0 (16.0-77.0) U/L Discharge Plan Discharge Chief Complaint: Chest Pain Clinical Impression: Chest pain Patient Disposition: Home, Self-Care Time of Disposition Decision: 19:55 Condition: Good Prescriptions / Home Meds: No Action No Known Home Medications Print Language: Hebrew Instructions: Chest Pain (ED) Additional Instructions: Follow-up with your PCP for further testing. I recommend outpatient stress test for better evaluation of your symptoms. Return anytime for worsening symptoms. Referrals: Bettina Baxter MD [Primary Care Provider] - As soon as possible Discharge Date/Time: 11/09/24 20:21
[2024-11-09 19:20] LABS: Alanine Aminotransferase 18 U/L (16-63); Albumin Level 3.7 g/dL (3.4-5.0); Alkaline Phosphatase 72 U/L (46-116); Anion Gap 9.8; Aspartate Amino Transferase 14 U/L (15-37); BUN Creatinine Ratio 11.1; Bilirubin Total 0.6 mg/dL (0.2-1.0); Calcium 8.7 mg/dL (8.5-10.1); Carbon Dioxide 30.9 mmol/L (21.0-32.0); Chloride 102 mmol/L (98-107); Estimated GFR (African America >60 (>=60 mL/min/1.73m^2); Estimated GFR (Non-African Ame 52 (>=60 mL/min/1.73m^2); Globulin 3.6 g/dL; Glucose 116 mg/dL (74-106); Potassium 3.7 mmol/L (3.5-5.1); Sodium 139 mmol/L (136-145); Total Protein 7.3 g/dL (6.4-8.2)
[2024-11-09 19:39] LABS: Troponin I High Sensitivity 4.4 pg/mL (4.0-76.1)
== END 2024-11-09 20:21 | disposition home or self-care (01) ==
PROVIDERS: Emergency Medicine; Emergency Provider Emergency Medicine; PCP Family Medicine
DX: R07.9 Chest pain, unspecified (principal); Z90.49 Acquired absence of other specified parts of digestive tract
CPT/HCPCS: 36415; 71046; 80053; 83690; 83735; 84484; 85025; 93005; 99285

== ENCOUNTER 2025-01-24 14:08 | Outpatient (OUT) | payer MEDICARE, SELFPAY ==
--- NOTE | 2025-01-24 14:38 | XR_ITS ---
The [place] [id number] Patient Name: ELVIS CARPENTER MRN: [id number] date: 1950 Sex: M Assigned Patient Location: [facility] Current Patient Location: [facility] Accession/Order Number: [id number] Exam Date: 01/24/2025 15:05 Report Date: 01/24/2025 15:05 At the request of: PETE BOLTON MD Procedure: XR hip BI w PEL 1V Bilateral hip series 2 views each of one view pelvis CLINICAL HISTORY: Bilateral Hip Pain COMPARISON: None FINDINGS: Mild degenerative changes of both hips without acute bony process. Additional degenerative changes seen involving the SI joints and pubic symphysis. XR/XR hip BI w PEL 1V IMPRESSION: MODERATE DEGENERATIVE CHANGES OF BOTH HIPS WITHOUT ACUTE BONY PROCESS.. Impression dictated by: Raj Rodríguez Jr., D.O. 01/24/2025 3:05 PM Dictation Location: [place] [id number] Electronically authenticated by: [id number] Y Date: 01/24/2025 15:05
== END 2025-01-24 14:09 | disposition home or self-care (01) ==
LOC: RAD 14:10
PROVIDERS: PCP Family Medicine; Visit Provider Family Medicine
DX: M25.551 Pain in right hip (principal); M25.552 Pain in left hip; M16.0 Bilateral primary osteoarthritis of hip
CPT/HCPCS: 73523

== ENCOUNTER 2025-05-30 10:52 | Outpatient (OUT) | payer MEDICARE, SELFPAY ==
--- OUTSIDE RECORDS SUMMARY | 2025-05-28 10:33 | XMS_ITS | Continuity of Care Document ---
Author Organization [facility] Address [address] [place] [address] Phone Care Team Providers Care Pens And Pencils Dipper Name Role Phone Bettina Baxter MD Primary Care Provider Bettina Baxter MD Attending Provider Care Teams Patient Care Team Team Status: Active Member Role Status Dates Bettina Baxter MD Primary Care Provider Active Patient Care Team Team Status: Inactive Member Role Status Dates Bettina Baxter MD Primary Care Provider Active Start: May 28, 2025 End: May 28, 2025 Bettina Baxter MD Attending Provider Active St art: May 28, 2025 End: May 28, 2025 Chief Complaint and Reason for Visit Chief Complaint Admit Date Wellness May 28, 2025 1:48pm Allergies, Adverse Reactions, Alerts Allergen Type Severity Reaction Last Updated Verified Status No Known Allergies Allergy Unknown 2024 1:55pm Yes Active Social History Smoking Status Status Start Date End Date Date of Observa tion Never smoked tobacco (finding) March 06, 2024 1:50pm Observation Status Observation Response Date of Response Legal Sex Male (finding) Sex Assigned At Male 1950 Family History Relationship Condition Age at Onset Recorded Date/T krishna father Unknown mother Unknown Problems Active Problems Medical Problem Onset Date Status Screening PSA (prostate specific antigen) Unknow n Active Colon cancer screening Unknown Active Elevated LFTs Unknown Active Pain of left great toe Unknown Active Bilateral hip pain Unknown Active Abdominal pain Unknown Active Bronchitis Unknown Active Substernal chest pain Unknown Active Encounter for screening colonoscopy Unknown Active Medications Medication Status Dose Units Route Directions Qty Days St art Date Stop Date End Date Instructions Adherence Omeprazole 40 mg capsule,del ayed release(DR/ EC) Discont inued 40 MG PO Daily 30 ry 2024 1:00am Sept[facility] 2024 1:56p m Simvastatin 10 mg tablet Discont inued 1 TAB PO Daily January 04, 2024 12:00a m March 06, 2024 1:50p m [employer]: TAKE 1 TABLET BY MOUTH DAILY; Note: Source Status: Start; Refills: 3; Qty: 90 Tablet; Provider: Sahil Dunbar ( ) Citalopram 10 mg tablet Discont inued 10 MG PO Daily January 04, 2024 12:00a m January 05, 2024 1:44p m Omeprazole 10 mg capsule,del ayed release(DR/ EC) Discont inued 10 MG PO Daily January 04, 2024 12:00a m January 05, 2024 1:44p m Simvastatin 10 mg tablet Discont inued 10 MG PO Daily March 06, 2024 1:[facility] 20[facility] 2:27p m Methylpredn isolone (Medrol (Law)) 4 mg tablets,dos e pack Discont inued 0 PO per package directions Junobe r 2023 12:00a m [facility] sri 2023 10:41 am PO PER PKG DIR Benzonatate 200 mg capsule Discont inued 200 MG PO Three times daily as needed for cough 30 Junobe r 2023 12:00a m [facility] sri 2023 10:41 am Immunizations Immunization Event Date Not Given Reason Dose Number Aviation Program Manager Lot Number Vaccine Information Statement (VIS) Detail Administration Location DTap, unspecified April 10, 2015 influenza, unspecified formulation June 30, 2015 influenza, unspecified formulation July 16, 2016 influenza, unspecified formulation July 07, 2017 influenza, unspecified formulation July 06, 2018 influenza, unspecified formulation July 10, 2019 influenza, unspecified formulation June 06, 2020 influenza, unspecified formulation June 08, 2021 Pneumococcal Conjugate Vaccine, 13 valent August 10, 2016 Pneumococcal Polysacc. Vaccine, 23 valent July 07, 2017 Tetanus, Diphtheria adult, 5 Lf pres free abs June 28, 2013 Tetanus, Diphtheria adult, 5 Lf pres free abs June 27, 2014 Vital Signs Vital Reading Result Reference Range Collection Date/Time Height 65.5 [in_i] May 28, 2025 1:51pm Weight 68.71 kg May 28, 2025 1:51pm Heart Rate 83 /min 60-100 May 28, 2025 1:51pm BP Systolic 120 mm[Hg] 100-140 May 28, 2025 1:51pm BP Diastolic 60 mm[Hg] 60-100 May 28, 2025 1:51pm BMI (Body Mass Index) 24.8 kg/m2 2024 1:51pm Advance Directives Advance Directive Response Recorded Date/ Time Advance Directives No January 04 024 1:23pm Insurance Providers Guarantor Aden Joo Address [address] [place] [address] Contact Info. Home Phone: Payer Policy Id Subscriber's Name Subscriber Id Effectiv e Date Expiration Date Medicare [id number] Aden Joo [id number] [facility] Medicare Advantage PFFS [id number] Aden Joo [id number] [facility] Health Claims [id number] Aden Joo [id number] Encounters Encounter Location(s) Arrival/Admit Date Discharge/Depart Date Provider(s) Departed Physician/Prov ider Office Visit -[facility] May 28, 2025 1:48pm May 28, 2025 2:32pm Bettina Baxter MD
--- OUTSIDE RECORDS SUMMARY | 2025-05-30 10:57 | XMS_ITS | Clinical Summary ---
Author Organization [facility] Address [address], [address] [place] [address] Care Team Providers Care Supply Chain Intern Name Role Phone Bettina Baxter MD Primary Care Provider [phone] Allergies No known active allergies Medications atorvastatin (LIPITOR) 10 MG tablet Take 1 tablet by mouth daily Active Multiple Vitamins-Minera ls (THERAPEUTIC MULTIVITAMIN-PR NERALS) tablet Take 1 tablet by mouth daily Active Coenzyme Q10 (COQ-10) 100 MG CAPS Take 100 mg by mouth Active NONFORMULARY Acid civil cad tech, unknown name Active citalopram (CELEXA) 10 MG tablet Take 1 tablet by mouth daily Active Apoaequorin (PREVAGEN EXTRA STRENGTH PO) Take by mouth Active Active Problems No known active problems Resolved Problems Problem Noted Date Diagnosed Date Resolved Date Combined forms of age-relate d cataract of right eye 01/23/2023 01/24/2023 Age-related nuclear cataract of left eye 07/05/2021 07/06/2021 Social History Tobacco Use Types Packs/Day Years Used Date Smoking Tobacco: Former Cigarettes Tobacco Cessation:Counseling Given: Not Answered Comments:when he was young Alcohol Use Standard Drinks/Week Comments Yes 0 (1 standard drink = 0.6 oz pur e alcohol) socially Interpersonal Safety Domain Source: IP Abuse Scr eening Answer Date Recorded Read-Only, Retired: Physical Abuse Denies 01/24/2023 Read-Only, Retired: Verbal Abuse Denies 01/24/2023 Read-Only, Retired: Emotional abuse Denies 01/24/2023 Read-Only, Retired: Financial Abuse Denies 01/24/2023 Read-Only, Retired: Sexual abuse Denies 01/24/2023 Sex and Gender Information Value Date Recorded Sex Assigned at Not on file Legal Sex Male 1:26 PM EDT Gender Identity Not on file Sexual Orientation Not on file Last Filed Vital Signs Vital Sign Reading Time Taken Comments Blood Pressure 126/80 01/24/2023 11:15 AM EDT Pulse 64 01/24/2023 11:15 AM EDT Temperature 36.2 C (97.2 F) 01/24/2023 10:53 AM EDT Respiratory Rate 16 01/24/2023 11:15 AM EDT Oxygen Saturation 98% 01/24/2023 11:15 AM EDT Inhaled Oxygen Concentration - - Weight 70.3 kg (155 lb) 01/24/2023 9:51 AM EDT Height 165.1 cm (5' 5 ) 01/24/2023 9:51 AM EDT Body Mass Index 25.79 01/24/2023 9:51 AM EDT Plan of Treatment Health Maintenance Due Date Last Done Comments DTaP/Tdap/Td vaccine (1 - Tdap) 1969 COVID-19 Vaccine ( season) 2024 07/03/2022, 06/23/2021, 11/07/2020, Additional history exists Respiratory Syncytial Virus (RSV) or age 60 yrs+ (1 - 1-dose 75+ series) 2025 Flu vaccine (#1) 04/26/2025 07/03/2022, 07/2018, 07/07/2017, Additional history exists Polio vaccine Aged Out No longer elig ible based on patient's age to complete this topic Medical Devices Implanted Type Area Kiln Cleaner Device Identifier Shelf Expiration Date Model / Serial / Lot Lens Intraocular Bcnvx 20.5+ Diopt 6x12.5 Mm Acryl Envista - [id number] Implanted:Qty: 1 on 07/06/2021 by Sathya Broderick DO at [facility] Left: Eye [employer] 12/25/2023 [id number] / [id number] / Lens Intocu +20 Diopt L12.5mm Dia6mm 119.1 Optical/118.7 A - [id number] Implanted:Qty: 1 on 01/24/2023 by Sathya Broderick DO at [facility] Right: Eye [employer] 11/23/2025 [id number] / [id number] / Insurance MEDICARE [employer] MEDICARE SUPP Advance Directives * Full Code (Latest Code Status on File) Date Activated Date Inactivated Comments 01/24/2023 9:26 AM 01/24/2023 1:32 PM * Full Code Date Activated Date Inactivated Comments 07/06/2021 9:02 AM 07/06/2021 3:12 PM Care Teams Supply Chain Intern Relationship Specialty Start Date End Date Bettina Baxter MD [address] [place] [address] PCP - General Family Medicine 01/21/23
--- OUTSIDE RECORDS SUMMARY | 2025-05-30 10:57 | XMS_ITS | Clinical Summary ---
Author Organization [facility] Address [id number] [address] [place] [address] Care Team Providers Care Batch Operator Name Role Phone Unavailable Primary Care Provider Unavailabl e Social History Tobacco Use Types Packs/Day Years Used Date Smoking Tobacco: Never Assessed Childcare Answer Date Recorded Childcare Unknown 03/07/2019 Employment Answer Date Recorded Employment Unknown 03/07/2019 Purpose - Life Answer Date Recorded Purpose and direction in life Unknown Sex and Gender Information Value Date Recorded Sex Assigned at Not on file Legal Sex Male 11:48 AM EDT Gender Identity Not on file Sexual Orientation Not on file Plan of Treatment Not on file Medical Devices Not on file Insurance [facility] MEDICARE
== END 2025-05-30 10:53 | disposition home or self-care (01) ==
LOC: LAB 10:55
PROVIDERS: PCP Family Medicine; Visit Provider Family Medicine
DX: Z00.00 Encounter for general adult medical examination without abnormal findings (principal); Z12.5 Encounter for screening for malignant neoplasm of prostate
CPT/HCPCS: 36415; 80053; 80061; G0103